=== PATIENT | female | born 1990 | race Caucasian/White ===

== ENCOUNTER 2023-03-19 14:30 | Emergency (ER) | payer OTHER, SELFPAY ==
[2023-03-19 14:41] VITALS: BP 164/121; PULSE 85; RESP 16; TEMP 36.7; O2SAT 100; BMI 28.4
--- NOTE | 2023-03-19 14:44 | ED_ITS ---
HPI - Nausea/Vomiting/Diarrhea General Chief complaint: Nausea/Vomiting/Diarrhea Stated complaint: NAUSEA, POSS. FOODBORNE ILLNESS Time Seen by Provider: 03/19/23 14:34 History of Present Illness HPI Narrative: developed nausea and vomiting with some body aches last night. She works at [employer] with her sister, who also developed the same symptoms.? No fever or chills.? She has not vomited since 11am and she has been able to keep down water since then.? No abdominal pain, flank pain or urinary symptoms.? No other known ill contacts and no one has called or come back to the restaurant complaining of foodborne illness symptoms. Related Data Previous Rx's Medication Instructions Recorded ondansetron 4 mg disintegrating 4 mg PO Q6H PRN nausea and 03/19/23 tablet vomiting #20 tabs Allergies Allergy/AdvReac Type Severity Reaction Status Date / Time Penicillins Allergy Unknown Verified 03/19/23 14:41 PFSH PFS Social History Smoking status: Current every day smoker Exam Narrative Exam Narrative: Nurses notes and vital signs reviewed and patient is not hypoxic. afebrile General: Well-appearing and in no apparent distress. Skin: Warm, dry, no pallor noted. No rash. Head: Normocephalic, atraumatic. Neck: Supple, non-tender. no cervical lymphadenopathy or meningismus Eye: Pupils are equal, round and EOMI. No scleral icterus. Ears, Nose, Mouth, and Throat: Oral mucosa is moist Cardiovascular: Regular Rate and Rhythm without murmur, gallop or rub. Respiratory: No accessory muscle use or respiratory distress. Lungs are clear to auscultation, no wheezing, rales or rhonchi Back: No CVA tenderness Musculoskeletal: normal ROM, no calf or popliteal tenderness, no lower extremity edema/swelling GI: Abdomen is soft, non-distended. Normal bowel sounds. No tenderness to palpation. No rebound, guarding, or rigidity noted. Neurological: A&O x4. No cranial nerve dysfunction observed. No truncal ataxia. Moves all extremities. Sensation intact. Psychiatric: Cooperative and interactive. Normal mood and affect. Constitutional Vital Signs - 24 hr 03/19/23 14:41 Temperature 98.0 F Pulse Rate [Monitor] 85 Respiratory Rate 16 Blood Pressure [Left Arm] 164/121 H Pulse Oximetry 100 Oxygen Delivery Method Room Air Course Vital Signs Vital signs: Vital Signs Temperature 98.0 F 03/19/23 14:41 Pulse Rate 85 03/19/23 14:41 Respiratory Rate 16 03/19/23 14:41 Blood Pressure 164/121 H 03/19/23 14:41 Pulse Oximetry 100 03/19/23 14:41 Oxygen Delivery Method Room Air 03/19/23 14:41 Temperature 98.0 F 03/19/23 14:41 Pulse Rate 85 03/19/23 14:41 Respiratory Rate 16 03/19/23 14:41 Blood Pressure 164/121 H 03/19/23 14:41 Pulse Oximetry 100 03/19/23 14:41 Oxygen Delivery Method Room Air 03/19/23 14:41 MDM - Nausea/Vomiting/Diarrhea MDM Narrative Medical decision making narrative: the patient was swabbed for Covid and given ODT Zofran. covid negative. Discharged home with prescription for zofran Lab Data Labs: Lab Results 03/19/23 Range/Units 15:00 SARS-CoV-2 (PCR) Negative (NEGATIVE) Discharge Plan Discharge Chief Complaint: Nausea/Vomiting/Diarrhea Clinical Impression: Nausea & vomiting Patient Disposition: Home, Self-Care Time of Disposition Decision: 15:36 Prescriptions / Home Meds: New ondansetron 4 mg tablet,disintegrating 4 mg PO Q6H PRN (Reason: nausea and vomiting) Qty: 20 0RF Instructions: Acute Nausea and Vomiting (ED) Stand Alone Forms: Portal Instructions Referrals: Aurelio Chino MD [Primary Care Provider] - 1 week
--- NOTE | 2023-03-19 15:03 | PC.NURSE ---
covid swab obtained and taken to the lab
[2023-03-19] MEDS: ONDANSETRON 4 MG RAPDIS TABLET SL (15:08)
[2023-03-19 15:28] LABS: SARS-CoV-2 Ag NEGATIVE (NEGATIVE)
--- NOTE | 2023-03-19 15:46 | PC.NURSE ---
BP was still elevated. Pt states it always is and that since she was nauseas she didn't take BP meds today. Pt instructed to take them as prescribed when she gets home states she will.
[2023-03-20 11:00] LABS: SARS-CoV-2 NAA NOT DETECTED (NOT DETECTE)
== END 2023-03-19 15:43 | disposition home or self-care (01) ==
PROVIDERS: Emergency Provider Emergency Medicine; PCP Family Medicine
DX: R11.2 Nausea with vomiting, unspecified (principal); F17.210 Nicotine dependence, cigarettes, uncomplicated; Z20.822 Contact with and (suspected) exposure to COVID-19
CPT/HCPCS: 87635; 87811; 99283

== ENCOUNTER 2023-05-06 11:30 | Emergency (ER) | payer OTHER, SELFPAY ==
[2023-05-06 11:33] VITALS: BP 142/90; PULSE 100; RESP 16; TEMP 36.7; O2SAT 98; BMI 30.9
--- NOTE | 2023-05-06 11:46 | ED.ABDPAIN1 ---
HPI - Abdominal Pain General Chief Complaint: Abdominal Pain Stated Complaint: PELVIC PAIN Time Seen by Provider: 05/06/23 11:45 Source: patient Mode of arrival: walk-in Limitations: no limitations Related Data Home Medications Medication Instructions Recorded Confirmed clonidine HCl 0.2 mg tablet 0.2 mg PO Q8H 05/06/23 05/06/23 naltrexone microspheres 380 mg 380 mg IM .monthly 05/06/23 05/06/23 intramuscular suspension,extended release (Vivitrol) quetiapine 100 mg tablet (Seroquel) 100 mg PO DAILY 05/06/23 05/06/23 trazodone 300 mg tablet 300 mg PO DAILY 05/06/23 05/06/23 Previous Rx's Medication Instructions Recorded ondansetron 4 mg disintegrating 4 mg PO Q6H PRN nausea and 03/19/23 tablet vomiting #20 tabs Allergies Allergy/AdvReac Type Severity Reaction Status Date / Time Penicillins Allergy Unknown Verified 05/06/23 11:33 PFSH PFSH Social History Smoking status: Current every day smoker Exam Constitutional Vital Signs, click to edit/add: Last Vital Signs Temp 98.1 F 05/06/23 11:33 Pulse 100 H 05/06/23 11:33 Resp 16 05/06/23 11:33 BP 142/90 H 05/06/23 11:33 Pulse Ox 98 05/06/23 11:33 O2 Del Method Room Air 05/06/23 11:33 Course Vital Signs Vital signs: Vital Signs Temperature 98.1 F 05/06/23 11:33 Pulse Rate 100 H 05/06/23 11:33 Respiratory Rate 16 05/06/23 11:33 Blood Pressure 142/90 H 05/06/23 11:33 Pulse Oximetry 98 05/06/23 11:33 Oxygen Delivery Method Room Air 05/06/23 11:33 Temperature 98.1 F 05/06/23 11:33 Pulse Rate 100 H 05/06/23 11:33 Respiratory Rate 16 05/06/23 11:33 Blood Pressure 142/90 H 05/06/23 11:33 Pulse Oximetry 98 05/06/23 11:33 Oxygen Delivery Method Room Air 05/06/23 11:33 Discharge Plan Discharge Chief Complaint: Abdominal Pain Prescriptions / Home Meds: No Action ondansetron 4 mg tablet,disintegrating 4 mg PO Q6H PRN (Reason: nausea and vomiting) Qty: 20 0RF clonidine HCl 0.2 mg tablet 0.2 mg PO Q8H trazodone 300 mg tablet 300 mg PO DAILY quetiapine [Seroquel] 100 mg tablet 100 mg PO DAILY Vivitrol 380 mg suspension,extended rel recon 380 mg IM .monthly Referrals: Theron Whitney DO [Primary Care Provider] - 1 week
--- NOTE | 2023-05-06 12:00 | US_ITS ---
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 FINDINGS: Uterus: Surgically absent. Vaginal cuff region is symmetric. Pelvic mass or free fluid is not evident. Right ovary: 4.0 x 2.8 x 2.7 cm, volume 16 mL. Increased number of subcentimeter peripherally distributed follicles identified. Left adnexa: No pathology identified left ovary surgically absent. DUPLEX PELVIC VASCULATURE: There is intact flow within the right ovarian tissue by color-flow assessment. Arterial and venous spectral tracing is identified from within. Right resistive index 0.62. US/US pelvis transvaginal IMPRESSION: 1. Surgical absence of the uterus and left ovary 2. Enlarged right ovarian volume, 16 mL with increased number peripherally distributed subcentimeter follicles. Polycystic ovarian syndrome considered in the appropriate clinical setting. 3. No sonographic sign of right adnexal torsion Electronically authenticated by: SEN BILL Date: 05/06/2023 12:41
[2023-05-06 12:05] LABS: Bilirubin Urine NEGATIVE (NEGATIVE); Blood Urine NEGATIVE (NEGATIVE); Clarity Urine CLEAR (CLEAR); Color Urine YELLOW (YELLOW); Glucose Urine UA NEGATIVE (NEGATIVE); Ketones Urine TRACE mg/dL (NEGATIVE); Leukocyte Esterase Urine NEGATIVE (NEGATIVE); Nitrite Urine NEGATIVE (NEGATIVE); Protein Urine NEGATIVE (NEG/TRACE); Specific Gravity Urine >=1.030 (1.005-1.025); Urobilinogen Urine 0.2 EU/dL (0.2-1.0)
[2023-05-06 12:08] LABS: Urine Microscopic Indicated NO
[2023-05-06 13:13] LABS: Occult Blood Negative
[2023-05-06] MEDS: IBUPROFEN 400 MG TABLET 800 MG PO (13:13)
--- NOTE | 2023-05-06 16:32 | ED.ABDPAIN1 ---
HPI - Abdominal Pain General Chief Complaint: Abdominal Pain Stated Complaint: PELVIC PAIN Time Seen by Provider: 05/06/23 11:45 Source: patient Mode of arrival: walk-in Limitations: no limitations History of Present Illness HPI narrative: Patient presents to emergency department complaining of left pelvic pain. Patient states she was at work and had to leave work because she developed left suprapubic pain. She said she felt like she has to have a bowel movement and she went to the bathroom but nothing happened so she then proceeded to urinate and when she wiped there was a pink tinged on the toilet paper. Patient was concerned because she had a hysterectomy. She denies any direct trauma. She denies any flank pain, or dysuria. She denies any trauma. She states that she had a bowel movement this morning. She denies any fever, chills, nausea, vomiting. She denies any vaginal discharge. She denies any chest pain, shortness of breath. Denies any lower extremity edema, cramping.pt has not taken anything for the pain. States the pain has improved. She also states has a history of ovarian cysts and this felt like when she had a cyst. Related Data Home Medications Medication Instructions Recorded Confirmed clonidine HCl 0.2 mg tablet 0.2 mg PO Q8H 05/06/23 05/06/23 naltrexone microspheres 380 mg 380 mg IM .monthly 05/06/23 05/06/23 intramuscular suspension,extended release (Vivitrol) quetiapine 100 mg tablet (Seroquel) 100 mg PO DAILY 05/06/23 05/06/23 trazodone 300 mg tablet 300 mg PO DAILY 05/06/23 05/06/23 Previous Rx's Medication Instructions Recorded ondansetron 4 mg disintegrating 4 mg PO Q6H PRN nausea and 03/19/23 tablet vomiting #20 tabs Allergies Allergy/AdvReac Type Severity Reaction Status Date / Time Penicillins Allergy Unknown Verified 05/06/23 11:33 Review of Systems ROS Status of ROS 10 or more systems reviewed and unremarkable except as noted in history and below [facility] Surgical History (Updated 05/06/23 @ 12:34 by Aurora Bishop RN) Social History Smoking status: Current every day smoker Exam Narrative Exam Narrative: Nurses notes and vital signs reviewed and patient is not hypoxic. General: Nontoxic, Well-appearing and in no apparent distress. Skin: Warm, dry, no pallor noted. No Rash Head: Normocephalic, atraumatic. Neck: Supple, non-tender. Eye: Pupils are equal, round and EOMI. No scleral icterus. Ears, Nose, Mouth, and Throat: TM clear, no posterior oropharynx erythema or nasal mucosal hypertrophy, uvula is mid-line Oral mucosa is moist Cardiovascular: Regular Rate and Rhythm without murmur, gallop or rub. Respiratory: No accessory muscle use or respiratory distress. Lungs are clear to auscultation, no wheezing, rales or rhonchi Chest Wall: no tenderness Back: No midline thoracic or lumbar vertebral tenderness. No CVA tenderness Musculoskeletal: normal ROM, no calf or popliteal tenderness, no lower extremity edema/swelling GI: Abdomen is soft, non-distended. Normal bowel sounds. No masses appreciated. Mild left suprapubic tenderness to palpation. No rebound, guarding, or rigidity noted. Genitourinary: Normal., No vaginal bleeding noted. Rectal exam shows soft yellow stool is Hemoccult-negative. There is a rectal nonthrombosed hemorrhoid. Neurological: A&O x4. No cranial nerve dysfunction observed. No truncal ataxia. Moves all extremities. Sensation intact. Psychiatric: Cooperative and interactive. Normal mood and affect. Constitutional Vital Signs, click to edit/add: Last Vital Signs Temp 98.1 F 05/06/23 11:33 Pulse 100 H 05/06/23 11:33 Resp 16 05/06/23 11:33 BP 142/90 H 05/06/23 11:33 Pulse Ox 98 05/06/23 11:33 O2 Del Method Room Air 05/06/23 11:33 Course Vital Signs Vital signs: Vital Signs Temperature 98.1 F 05/06/23 11:33 Pulse Rate 100 H 05/06/23 11:33 Respiratory Rate 16 05/06/23 11:33 Blood Pressure 142/90 H 05/06/23 11:33 Pulse Oximetry 98 05/06/23 11:33 Oxygen Delivery Method Room Air 05/06/23 11:33 Temperature 98.1 F 05/06/23 11:33 Pulse Rate 100 H 05/06/23 11:33 Respiratory Rate 16 05/06/23 11:33 Blood Pressure 142/90 H 08/16/23 11:33 Pulse Oximetry 98 08/16/23 11:33 Oxygen Delivery Method Room Air 05/06/23 11:33 MDM - Abdominal Pain MDM Narrative Medical decision making narrative: Urinalysis did not show any Hematuria. Vaginal exam does not show any vaginal bleeding. Rectal exam does not show any blood. The patient was instructed to continue to monitor. Pain has improved. Pelvic ultrasound shows PCOS. no signs of torsion. Abdomen is benign and nonsurgical. Patient is advised to continue taking Motrin at home as stated for pain. At this time the patient is without objective evidence of an acute process requiring hospitalization or inpatient management. The patient has remained hemodynamically stable. No additional indication for emergent studies at this time. I answered all questions. Discussed discharge instructions including standard anticipatory guidance and what should prompt a return to the emergency department, including if they get worse are not getting better or develops any new or concerning symptoms. I've given them specific time frame in which to follow-up, and who to follow-up with. The patient demonstrates understanding. Patient is nontoxic and stable for discharge with outpatient follow-up. This note was created with the assistance of a speech recognition program. Although the intention is to generate documents that actually reflects the content of the visit, no guarantees can be provided that every mistake has been identified and corrected by editing. Lab Data Labs: Lab Results 05/06/23 05/06/23 Range/Units 11:43 12:35 Urine Color Yellow (YELLOW) Urine Clarity Clear (CLEAR) Urine pH 5.0 (5.0-9.0) Ur Specific [place] >=1.030 A (1.005-1.025) Urine Protein Negative (NEG/TRACE) mg/dL Urine Glucose (UA) Negative (NEGATIVE) mg/dL Urine Ketones Trace A (NEGATIVE) mg/dL Urine Occult Blood Negative (NEGATIVE) Urine Nitrite Negative (NEGATIVE) Urine Bilirubin Negative (NEGATIVE) Urine Urobilinogen 0.2 (0.2-1.0) EU/dL Ur Leukocyte Esterase Negative (NEGATIVE) Stool Occult Blood Negative Discharge Plan Discharge Chief Complaint: Abdominal Pain Clinical Impression: Pelvic pain Patient Disposition: Home, Self-Care Time of Disposition Decision: 13:20 Condition: Good Mode of Transportation: Private Vehicle Prescriptions / Home Meds: No Action ondansetron 4 mg tablet,disintegrating 4 mg PO Q6H PRN (Reason: nausea and vomiting) Qty: 20 0RF clonidine HCl 0.2 mg tablet 0.2 mg PO Q8H trazodone 300 mg tablet 300 mg PO DAILY quetiapine [Seroquel] 100 mg tablet 100 mg PO DAILY Vivitrol 380 mg suspension,extended rel recon 380 mg IM .monthly Instructions: Pelvic Pain (ED) Stand Alone Forms: Portal Instructions Referrals: Theron Whitney DO [Primary Care Provider] - 1 week Discharge Date/Time: 05/06/23 13:25
== END 2023-05-06 13:25 | disposition home or self-care (01) ==
PROVIDERS: Emergency Provider Emergency Medicine; PCP Obstetrics & Gynecology
DX: R10.2 Pelvic and perineal pain (principal); E28.2 Polycystic ovarian syndrome; Z90.710 Acquired absence of both cervix and uterus; Z79.899 Other long term (current) drug therapy; F17.210 Nicotine dependence, cigarettes, uncomplicated
CPT/HCPCS: 76830; 81003; 99284; G0328

== ENCOUNTER 2023-06-19 09:34 | Emergency (ER) | payer OTHER, SELFPAY ==
[2023-06-19 09:38] VITALS: BP 179/123; PULSE 82; RESP 16; TEMP 36.7; O2SAT 98; BMI 31.0
--- NOTE | 2023-06-19 09:49 | ED_ITS ---
HPI - General Adult General Chief complaint: Nausea/Vomiting/Diarrhea Stated complaint: NAUSEA Time Seen by Provider: 06/19/23 09:39 Source: patient Mode of arrival: walk-in Limitations: no limitations History of Present Illness HPI narrative: Patient developed nausea and vomiting about 12 hours ago and has been unable to keep anything down since then. No associated diarrhea or abdominal pain. No flank pain. She had prior hysterectomy. She denied urinary symptoms and denied any fever or chills. Related Data Home Medications Medication Instructions Recorded Confirmed clonidine HCl 0.2 mg tablet 0.2 mg PO Q8H 05/06/23 05/06/23 naltrexone microspheres 380 mg 380 mg IM .monthly 05/06/23 05/06/23 intramuscular suspension,extended release (Vivitrol) quetiapine 100 mg tablet (Seroquel) 100 mg PO DAILY 05/06/23 05/06/23 trazodone 300 mg tablet 300 mg PO DAILY 05/06/23 05/06/23 Previous Rx's Medication Instructions Recorded ondansetron 4 mg disintegrating 4 mg PO Q6H PRN nausea and 03/19/23 tablet vomiting #20 tabs Allergies Allergy/AdvReac Type Severity Reaction Status Date / Time Penicillins Allergy Unknown Verified 05/06/23 11:33 [facility] Surgical History (Updated 05/06/23 @ 12:34 by Aurora Bishop RN) Social History Smoking status: Current every day smoker Exam Narrative Exam Narrative: Nurses notes and vital signs reviewed and patient is not hypoxic. afebrile General: Well-appearing and in no apparent distress. Skin: Warm, dry, no pallor noted. Neck: Supple, no meningismus Eye: Pupils are equal, round and EOMI. No scleral icterus. Ears, Nose, Mouth, and Throat: Oral mucosa is dry Cardiovascular: Regular Rate and Rhythm without murmur, gallop or rub. Respiratory: No accessory muscle use or respiratory distress. Lungs are clear to auscultation, no wheezing, rales or rhonchi Back: No CVA tenderness Musculoskeletal: normal ROM GI: Abdomen is soft, non-distended. Normal bowel sounds. No masses appreciated. No tenderness to palpation. No rebound, guarding, or rigidity noted. Neurological: A&O x4. No cranial nerve dysfunction observed. No truncal ataxia. Moves all extremities. Sensation intact. Psychiatric: Cooperative and interactive. Normal mood and affect. Constitutional Vital Signs, click to edit/add: Last Vital Signs Temp 98.1 F 06/19/23 09:38 Pulse 82 06/19/23 10:15 Resp 18 06/19/23 10:15 BP 152/98 H 06/19/23 10:15 Pulse Ox 98 06/19/23 10:15 Course Vital Signs Vital signs: Vital Signs Temperature 98.1 F 06/19/23 09:38 Pulse Rate 82 06/19/23 09:38 Respiratory Rate 16 06/19/23 09:38 Blood Pressure 179/123 H 06/19/23 09:38 Pulse Oximetry 98 06/19/23 09:38 Temperature 98.1 F 06/19/23 09:38 Pulse Rate 82 06/19/23 10:15 Respiratory Rate 18 06/19/23 10:15 Blood Pressure 152/98 H 06/19/23 10:15 Pulse Oximetry 98 06/19/23 10:15 Medical Decision Making MDM Narrative Medical decision making narrative: peripheral IV established and blood and urine were obtained and sent for testing. the patient has mild elevation of her LFTs and some bilirubin in her urine - she had previous cholecystectomy and is not having any upper abdominal tenderness on palpation - but otherwise the testing was unremarkable. The patient received a liter of normal saline IV fluid and IV Zofran. She felt better after Emergency Department treatment. She has additional Zofran at home from prior prescription in February and plans to use that. We discussed clear liquid diet until her nausea and vomiting subside and advancement as tolerated. Emergency Department return if she worsens. Lab Data Lab results reviewed: Yes I reviewed the patient's lab results Labs: Lab Results 06/19/23 06/19/23 Range/Units 09:43 10:02 WBC 8.7 (4.0-11.0) 10^3/uL RBC 5.36 (4.20-5.40) 10^6/uL Hgb 16.2 H (12.0-16.0) g/dL Hct 48.4 H (36.0-48.0) % MCV 90.3 (81.0-99.0) fL MCH 30.2 (26.7-34.0) pg MCHC 33.5 (29.9-35.2) g/dL RDW 12.4 (11.0-15.0) % Plt Count 259 (150-450) 10^3/uL MPV 9.3 L (9.5-13.5) fL Neut % (Auto) 72.3 (43.0-75.0) % Lymph % (Auto) 18.6 L (20.5-60.0) % [place] % (Auto) 7.5 (1.7-12.0) % Eos % (Auto) 0.5 L (0.9-7.0) % Baso % (Auto) 0.8 (0.2-2.0) % Neut # (Auto) 6.3 (1.4-6.5) 10^3/uL Lymph # (Auto) 1.6 (1.2-3.8) 10^3/uL [place] # (Auto) 0.7 (0.3-0.8) 10^3/uL Eos # (Auto) 0.0 (0.0-0.7) 10^3/uL Baso # (Auto) 0.1 (0.0-0.1) 10^3/uL Abs Immat Gran (auto) 0.03 (0.00-0.03) 10^3/uL Imm/Tot Granulo (auto) 0.3 (0.0-0.5) % Sodium 139 (136-145) mmol/L Potassium 3.9 (3.5-5.1) mmol/L Chloride 99 (98-107) mmol/L Carbon Dioxide 28.9 (21.0-32.0) mmol/L Anion Gap 15.0 BUN 19.0 H (7.0-18.0) mg/dL Creatinine 0.98 (0.55-1.02) mg/dL Est GFR ( Amer) >60 (>=60) Est GFR (Non-Af Amer) >60 (>=60) BUN/Creatinine Ratio 19.4 Glucose 119 H (74-106) mg/dL Calcium 9.6 (8.5-10.1) mg/dL Total Bilirubin 0.9 (0.2-1.0) mg/dL AST 43 H (15-37) U/L ALT 112 H (14-59) U/L Alkaline Phosphatase 71 (46-116) U/L Total Protein 8.6 H (6.4-8.2) g/dL Albumin 4.2 (3.4-5.0) g/dL Globulin 4.4 g/dL Albumin/Globulin Ratio 1.0 Lipase 150.0 (73.0-393.0) U/L Urine Color Dk. yellow (YELLOW) Urine Clarity Clear (CLEAR) Urine pH 5.5 (5.0-9.0) Ur Specific [place] >=1.030 A (1.005-1.025) Urine Protein 30 A (NEG/TRACE) mg/dL Urine Glucose (UA) Negative (NEGATIVE) mg/dL Urine Ketones 15 A (NEGATIVE) mg/dL Urine Occult Blood Negative (NEGATIVE) Urine Nitrite Negative (NEGATIVE) Urine Bilirubin Moderate A (NEGATIVE) Urine Urobilinogen 0.2 (0.2-1.0) EU/dL Ur Leukocyte Esterase Negative (NEGATIVE) Urine RBC 0-2 (0-2) #/HPF Urine WBC None seen (NONE SEEN) #/HPF Ur Squamous Epith Cells Few A (NONE/RARE) #/LPF Urine Crystals None seen (None Seen) #/HPF Urine Bacteria Small A (NONE SEEN) #/HPF Urine Casts None seen (NONE SEEN) #/LPF Urine Mucus Moderate A (NONE SEEN) Ur Culture Indicated? Yes Discharge Plan Discharge Chief Complaint: Nausea/Vomiting/Diarrhea Clinical Impression: Nausea & vomiting Patient Disposition: Home, Self-Care Time of Disposition Decision: 11:24 Prescriptions / Home Meds: No Action ondansetron 4 mg tablet,disintegrating 4 mg PO Q6H PRN (Reason: nausea and vomiting) Qty: 20 0RF clonidine HCl 0.2 mg tablet 0.2 mg PO Q8H trazodone 300 mg tablet 300 mg PO DAILY quetiapine [Seroquel] 100 mg tablet 100 mg PO DAILY Vivitrol 380 mg suspension,extended rel recon 380 mg IM .monthly Instructions: Acute Nausea and Vomiting (ED) Stand Alone Forms: Portal Instructions Referrals: Aurelio Chino MD [Primary Care Provider] - 1 week
[2023-06-19] MEDS: 0.9 % SODIUM CHLORIDE 1,000 ML 999 ML IV (09:54)
[2023-06-19] MEDS: ONDANSETRON PF 4 MG/2 ML VIAL IV (09:54)
[2023-06-19 10:15] VITALS: BP 152/98; PULSE 82; RESP 18; O2SAT 98
[2023-06-19 10:17] LABS: Bilirubin Urine MODERATE (NEGATIVE); Blood Urine NEGATIVE (NEGATIVE); Clarity Urine CLEAR (CLEAR); Color Urine DK. YELLOW (YELLOW); Glucose Urine UA NEGATIVE (NEGATIVE); Ketones Urine 15 mg/dL (NEGATIVE); Leukocyte Esterase Urine NEGATIVE (NEGATIVE); Nitrite Urine NEGATIVE (NEGATIVE); Protein Urine 30 mg/dL (NEG/TRACE); Specific Gravity Urine >=1.030 (1.005-1.025); Urobilinogen Urine 0.2 EU/dL (0.2-1.0); pH Urine 5.5 (5.0-9.0)
[2023-06-19 10:17] LABS: Basophils Absolute Auto 0.1 10^3/uL (0.0-0.1); Basophils Percent Auto 0.8 % (0.2-2.0); Eosinophils Percent Auto 0.5 % (0.9-7.0); Hematocrit 48.4 % (36.0-48.0); Hemoglobin 16.2 g/dL (12.0-16.0); Immature Granulocytes Abs Auto 0.03 10^3/uL (0.00-0.03); Immature Granulocytes Pct Auto 0.3 % (0.0-0.5); Lymphocytes Absolute Auto 1.6 10^3/uL (1.2-3.8); Lymphocytes Percent Auto 18.6 % (20.5-60.0); Mean Corpuscular HGB Conc 33.5 g/dL (29.9-35.2); Mean Corpuscular Hemoglobin 30.2 pg (26.7-34.0); Mean Corpuscular Volume 90.3 fL (81.0-99.0); Mean Platelet Volume 9.3 fL (9.5-13.5); Monocytes Absolute Auto 0.7 10^3/uL (0.3-0.8); Monocytes Percent Auto 7.5 % (1.7-12.0); Neutrophils Absolute Auto 6.3 10^3/uL (1.4-6.5); Neutrophils Percent Auto 72.3 % (43.0-75.0); Platelet Count 259 10^3/uL (150-450); Red Blood Count 5.36 10^6/uL (4.20-5.40); Red Cell Distribution Width 12.4 % (11.0-15.0); White Blood Count 8.7 10^3/uL (4.0-11.0)
[2023-06-19 10:22] LABS: Urine Microscopic Indicated YES
[2023-06-19 10:30] LABS: Bacteria Urine SMALL #/HPF (NONE SEEN); Cast Seen? NONE SEEN #/LPF (NONE SEEN); Crystals Seen? None Seen #/HPF (None Seen); Mucus Urine MODERATE (NONE SEEN); RBC Urine 0-2 #/HPF (0-2); Squamous Epithelial Cell Urine FEW #/LPF (NONE/RARE); Urine Culture Indicated YES; WBC Urine NONE SEEN #/HPF (NONE SEEN)
[2023-06-19 10:39] LABS: Alanine Aminotransferase 112 U/L (14-59); Albumin Level 4.2 g/dL (3.4-5.0); Alkaline Phosphatase 71 U/L (46-116); Aspartate Amino Transferase 43 U/L (15-37); BUN Creatinine Ratio 19.4; Bilirubin Total 0.9 mg/dL (0.2-1.0); Calcium 9.6 mg/dL (8.5-10.1); Carbon Dioxide 28.9 mmol/L (21.0-32.0); Chloride 99 mmol/L (98-107); Estimated GFR (African America >60 (>=60); Estimated GFR (Non-African Ame >60 (>=60); Globulin 4.4 g/dL; Glucose 119 mg/dL (74-106); Potassium 3.9 mmol/L (3.5-5.1); Sodium 139 mmol/L (136-145); Total Protein 8.6 g/dL (6.4-8.2)
== END 2023-06-19 11:31 | disposition home or self-care (01) ==
PROVIDERS: Emergency Provider Emergency Medicine; PCP Family Medicine
DX: R11.2 Nausea with vomiting, unspecified (principal); Z90.710 Acquired absence of both cervix and uterus; Z79.899 Other long term (current) drug therapy; F17.210 Nicotine dependence, cigarettes, uncomplicated; R79.89 Other specified abnormal findings of blood chemistry
CPT/HCPCS: 36415; 80053; 81001; 83690; 85025; 87086; 96361; 96374; 99284

== ENCOUNTER 2023-06-20 10:45 | Emergency (ER) | payer OTHER, SELFPAY ==
[2023-06-20 10:54] VITALS: BP 148/107; PULSE 88; RESP 14; TEMP 37; O2SAT 98; BMI 31.0
--- NOTE | 2023-06-20 11:04 | ED.GENADUL1 ---
HPI - General Adult General Chief complaint: Nausea/Vomiting/Diarrhea Stated complaint: STILL UNABLE TO KEEP FOODS/LIQUIDS DOWN Time Seen by Provider: 06/20/23 10:50 Source: patient Mode of arrival: walk-in Limitations: no limitations History of Present Illness HPI narrative: I saw this patient yesterday. She did well last night and then woke at 4am and vomited. She did not take any additional zofran. She was able to sip water and gatorade this morning. She came back because she is still nauseous. No new symptoms. She asked to be swabbed for Covid. She does not have fever, chills, headache or URI symptoms. Related Data Home Medications Medication Instructions Recorded Confirmed clonidine HCl 0.2 mg tablet 0.2 mg PO Q8H 05/06/23 06/20/23 naltrexone microspheres 380 mg 380 mg IM .monthly 05/06/23 06/20/23 intramuscular suspension,extended release (Vivitrol) quetiapine 100 mg tablet (Seroquel) 100 mg PO DAILY 05/06/23 06/20/23 trazodone 300 mg tablet 300 mg PO DAILY 05/06/23 06/20/23 Previous Rx's Medication Instructions Recorded ondansetron 4 mg disintegrating 4 mg PO Q6H PRN nausea and 03/19/23 tablet vomiting #20 tabs Allergies Allergy/AdvReac Type Severity Reaction Status Date / Time Penicillins Allergy Unknown Verified 06/20/23 10:53 [facility] Surgical History (Updated 05/06/23 @ 12:34 by Aurora Bishop RN) History of hysterectomy ?Z90.710 - Acquired absence of both cervix and uterus (ICD-10) Social History Smoking status: Current every day smoker Exam Narrative Exam Narrative: Nurses notes and vital signs reviewed and patient is not hypoxic. afebrile General: Well-appearing and in no apparent distress. Skin: Warm, dry, no pallor noted. No rash. Head: Normocephalic, atraumatic. Neck: Supple, no images. Eye: Pupils are equal, round and EOMI. No scleral icterus. Ears, Nose, Mouth, and Throat: Oral mucosa is moist Cardiovascular: Regular Rate and Rhythm without murmur, gallop or rub. Respiratory: No accessory muscle use or respiratory distress. Lungs are clear to auscultation, no wheezing, rales or rhonchi Musculoskeletal: normal ROM GI: Abdomen is soft, non-distended. Normal bowel sounds. No tenderness to palpation. No rebound, guarding, or rigidity noted. Neurological: A&O x4. No cranial nerve dysfunction observed. No truncal ataxia. Moves all extremities. Sensation intact. Psychiatric: Cooperative and interactive. Normal mood and affect. Constitutional Vital Signs, click to edit/add: Last Vital Signs Temp 98.6 F 06/20/23 10:54 Pulse 88 06/20/23 10:54 Resp 14 06/20/23 10:54 BP 148/107 H 06/20/23 10:54 Pulse Ox 98 06/20/23 10:54 O2 Del Method Room Air 06/20/23 10:54 Course Vital Signs Vital signs: Vital Signs Temperature 98.6 F 06/20/23 10:54 Pulse Rate 88 06/20/23 10:54 Respiratory Rate 14 06/20/23 10:54 Blood Pressure 148/107 H 06/20/23 10:54 Pulse Oximetry 98 06/20/23 10:54 Oxygen Delivery Method Room Air 06/20/23 10:54 Temperature 98.6 F 06/20/23 10:54 Pulse Rate 88 06/20/23 10:54 Respiratory Rate 14 06/20/23 10:54 Blood Pressure 148/107 H 06/20/23 10:54 Pulse Oximetry 98 06/20/23 10:54 Oxygen Delivery Method Room Air 06/20/23 10:54 Medical Decision Making MDM Narrative Medical decision making narrative: patient was artery worked up and evaluated yesterday. She did not take her Zofran this morning. I ordered her to receive IM Phenergan and she was discharged home. She requested a Covid swabs that was obtained. We will call her back as positive. She can see Dr. Chino for follow-up Discharge Plan Discharge Chief Complaint: Nausea/Vomiting/Diarrhea Clinical Impression: Nausea & vomiting Patient Disposition: Home, Self-Care Time of Disposition Decision: 11:04 Prescriptions / Home Meds: No Action ondansetron 4 mg tablet,disintegrating 4 mg PO Q6H PRN (Reason: nausea and vomiting) Qty: 20 0RF clonidine HCl 0.2 mg tablet 0.2 mg PO Q8H trazodone 300 mg tablet 300 mg PO DAILY quetiapine [Seroquel] 100 mg tablet 100 mg PO DAILY Vivitrol 380 mg suspension,extended rel recon 380 mg IM .monthly Instructions: Acute Nausea and Vomiting (ED) Stand Alone Forms: Portal Instructions Referrals: Aurelio Chino MD [Primary Care Provider] - 1 week
[2023-06-20] MEDS: PROMETHAZINE HCL 25 MG/ML VIAL IM (11:11)
[2023-06-20 11:49] LABS: SARS-CoV-2 Ag NEGATIVE (NEGATIVE)
[2023-06-21 15:30] LABS: SARS-CoV-2 NAA NOT DETECTED (NOT DETECTE)
== END 2023-06-20 11:21 | disposition home or self-care (01) ==
PROVIDERS: Emergency Provider Emergency Medicine; PCP Family Medicine
DX: R11.2 Nausea with vomiting, unspecified (principal); R19.7 Diarrhea, unspecified; F17.210 Nicotine dependence, cigarettes, uncomplicated; Z90.710 Acquired absence of both cervix and uterus; Z20.822 Contact with and (suspected) exposure to COVID-19
CPT/HCPCS: 87635; 87811; 96372; 99284; U0003

== ENCOUNTER 2023-06-25 07:58 | Emergency (ER) | payer OTHER, SELFPAY ==
[2023-06-25 08:03] VITALS: BP 191/123; PULSE 77; RESP 20; TEMP 36.9; O2SAT 98; BMI 31.0
--- NOTE | 2023-06-25 08:11 | ED_ITS ---
HPI - Nausea/Vomiting/Diarrhea General Chief complaint: Nausea/Vomiting/Diarrhea Stated complaint: VOMITING Time Seen by Provider: 06/25/23 08:02 Source: patient Mode of arrival: walk-in Limitations: no limitations History of Present Illness HPI Narrative: 33-year-old female presents for six days of nausea and vomiting. She was here earlier in the past week. She hasn't had a fever or hematemesis. No cough or shortness of breath. She doesn't complain of diarrhea except a minimal amount that she feels is due to not eating. Related Data Home Medications Medication Instructions Recorded Confirmed clonidine HCl 0.2 mg tablet 0.2 mg PO Q8H 05/06/23 06/20/23 naltrexone microspheres 380 mg 380 mg IM .monthly 05/06/23 06/20/23 intramuscular suspension,extended release (Vivitrol) quetiapine 100 mg tablet (Seroquel) 100 mg PO DAILY 05/06/23 06/20/23 trazodone 300 mg tablet 300 mg PO DAILY 05/06/23 06/20/23 Previous Rx's Medication Instructions Recorded ondansetron 4 mg disintegrating 4 mg PO Q6H PRN nausea and 03/19/23 tablet vomiting #20 tabs promethazine 25 mg tablet 25 mg PO Q6H PRN nausea and 06/25/23 vomiting #30 tabs Allergies Allergy/AdvReac Type Severity Reaction Status Date / Time Penicillins Allergy Unknown Verified 06/25/23 08:09 Review of Systems ROS Narrative systems [facility] Surgical History (Updated 05/06/23 @ 12:34 by Aurora Bishop RN) History of hysterectomy ?Z90.710 - Acquired absence of both cervix and uterus (ICD-10) Social History Smoking status: Current every day smoker Exam Narrative Exam Narrative: Nurses note and vital signs reviewed and patient is not hypoxic. General: The patient appears well and in no apparent distress. Patient is resting comfortably on cart. Skin: Warm, dry, no pallor noted. There is no rash noted. Head: Normocephalic, atraumatic Eye: Normal conjunctiva, no drainage Ears, Nose, Mouth, and Throat: oral mucosa is moist. Nares patent. Cardiovascular: Regular Rate and Rhythm Respiratory: Patient is in no distress, no accessory muscle use, lungs are clear to auscultation, no wheezing, rales or rhonchi Back: non-tender GI: soft and nontender and nondistended Musculoskeletal: The patient has no evidence of calf tenderness, no pitting edema, symmetrical pulses noted bilaterally Neurological: A&O, normal speech Psychiatric: Cooperative Constitutional Vital Signs, click to edit/add: Last Vital Signs Temp 98.4 F 06/25/23 08:03 Pulse 77 06/25/23 08:03 Resp 20 06/25/23 08:03 BP 160/100 H 06/25/23 11:48 Pulse Ox 98 06/25/23 08:03 O2 Del Method Room Air 06/25/23 08:03 Course Vital Signs Vital signs: Vital Signs Temperature 98.4 F 06/25/23 08:03 Pulse Rate 77 06/25/23 08:03 Respiratory Rate 20 06/25/23 08:03 Blood Pressure 191/123 H 06/25/23 08:03 Pulse Oximetry 98 06/25/23 08:03 Oxygen Delivery Method Room Air 06/25/23 08:03 Temperature 98.4 F 06/25/23 08:03 Pulse Rate 77 06/25/23 08:03 Respiratory Rate 20 06/25/23 08:03 Blood Pressure 160/100 H 06/25/23 11:48 Pulse Oximetry 98 06/25/23 08:03 Oxygen Delivery Method Room Air 06/25/23 08:03 MDM - Nausea/Vomiting/Diarrhea MDM Narrative Medical decision making narrative: We were unable to get an IV in her, she has a remote history of IV drug abuse. She was given IM Phenergan and feels much better now and is tolerating by mouth liquids. We were able to give her her blood pressure medication, morning dose, and her blood pressure is improving. She is able to be discharged home on Phenergan. Treatment diagnosis and follow-up were discussed with the patient. Differential Diagnosis Differential diagnosis: Likely food poisoning, gastroenteritis and dehydration Lab Data Attestation: I reviewed the patient's lab results. Labs: Lab Results 06/25/23 06/25/23 Range/Units 08:15 09:15 WBC 6.6 (4.0-11.0) 10^3/uL RBC 5.06 (4.20-5.40) 10^6/uL Hgb 15.3 (12.0-16.0) g/dL Hct 45.3 (36.0-48.0) % MCV 89.5 (81.0-99.0) fL MCH 30.2 (26.7-34.0) pg MCHC 33.8 (29.9-35.2) g/dL RDW 12.2 (11.0-15.0) % Plt Count 253 (150-450) 10^3/uL MPV 9.9 (9.5-13.5) fL Neut % (Auto) 64.7 (43.0-75.0) % Lymph % (Auto) 23.1 (20.5-60.0) % Canadian % (Auto) 8.9 (1.7-12.0) % Eos % (Auto) 1.7 (0.9-7.0) % Baso % (Auto) 0.8 (0.2-2.0) % Neut # (Auto) 4.3 (1.4-6.5) 10^3/uL Lymph # (Auto) 1.5 (1.2-3.8) 10^3/uL Canadian # (Auto) 0.6 (0.3-0.8) 10^3/uL Eos # (Auto) 0.1 (0.0-0.7) 10^3/uL Baso # (Auto) 0.1 (0.0-0.1) 10^3/uL Abs Immat Gran (auto) 0.05 H (0.00-0.03) 10^3/uL Imm/Tot Granulo (auto) 0.8 H (0.0-0.5) % Sodium 140 (136-145) mmol/L Potassium 3.4 L (3.5-5.1) mmol/L Chloride 104 (98-107) mmol/L Carbon Dioxide 25.4 (21.0-32.0) mmol/L Anion Gap 14.0 BUN 13.0 (7.0-18.0) mg/dL Creatinine 0.68 (0.55-1.02) mg/dL Est GFR ( Amer) >60 (>=60) Est GFR (Non-Af Amer) >60 (>=60) BUN/Creatinine Ratio 19.1 Glucose 115 H (74-106) mg/dL Calcium 9.0 (8.5-10.1) mg/dL Total Bilirubin 0.5 (0.2-1.0) mg/dL Direct Bilirubin 0.1 (0.0-0.2) mg/dL AST 30 (15-37) U/L ALT 69 H (14-59) U/L Alkaline Phosphatase 61 (46-116) U/L Total Protein 7.6 (6.4-8.2) g/dL Albumin 3.7 (3.4-5.0) g/dL Globulin 3.9 g/dL Albumin/Globulin Ratio 0.9 Serum HCG, Qual Cancelled Urine Color Yellow (YELLOW) Urine Clarity Clear (CLEAR) Urine pH 7.0 (5.0-9.0) Ur Specific [place] 1.025 (1.005-1.025) Urine Protein 30 A (NEG/TRACE) mg/dL Urine Glucose (UA) Negative (NEGATIVE) mg/dL Urine Ketones >=80 A (NEGATIVE) mg/dL Urine Occult Blood Negative (NEGATIVE) Urine Nitrite Negative (NEGATIVE) Urine Bilirubin Small A (NEGATIVE) Urine Urobilinogen 1.0 (0.2-1.0) EU/dL Ur Leukocyte Esterase Negative (NEGATIVE) Urine RBC 0-2 (0-2) #/HPF Urine WBC None seen (NONE SEEN) #/HPF Ur Squamous Epith Cells Moderate A (NONE/RARE) #/LPF Urine Crystals None seen (None Seen) #/HPF Urine Bacteria Trace A (NONE SEEN) #/HPF Urine Casts Seen A (NONE SEEN) #/LPF Hyaline Casts Rare Urine Mucus Moderate A (NONE SEEN) Discharge Plan Discharge Chief Complaint: Nausea/Vomiting/Diarrhea Clinical Impression: Nausea & vomiting Patient Disposition: Home, Self-Care Time of Disposition Decision: 12:04 Condition: Good Mode of Transportation: Private Vehicle Prescriptions / Home Meds: New promethazine 25 mg tablet 25 mg PO Q6H PRN (Reason: nausea and vomiting) Qty: 30 0RF No Action ondansetron 4 mg tablet,disintegrating 4 mg PO Q6H PRN (Reason: nausea and vomiting) Qty: 20 0RF clonidine HCl 0.2 mg tablet 0.2 mg PO Q8H trazodone 300 mg tablet 300 mg PO DAILY quetiapine [Seroquel] 100 mg tablet 100 mg PO DAILY Vivitrol 380 mg suspension,extended rel recon 380 mg IM .monthly Instructions: Acute Nausea and Vomiting (ED) Stand Alone Forms: Portal Instructions Referrals: Aurelio Chino MD [Primary Care Provider] - 1 week
[2023-06-25 08:33] LABS: Basophils Absolute Auto 0.1 10^3/uL (0.0-0.1); Basophils Percent Auto 0.8 % (0.2-2.0); Eosinophils Absolute Auto 0.1 10^3/uL (0.0-0.7); Eosinophils Percent Auto 1.7 % (0.9-7.0); Hematocrit 45.3 % (36.0-48.0); Hemoglobin 15.3 g/dL (12.0-16.0); Immature Granulocytes Abs Auto 0.05 10^3/uL (0.00-0.03); Immature Granulocytes Pct Auto 0.8 % (0.0-0.5); Lymphocytes Absolute Auto 1.5 10^3/uL (1.2-3.8); Lymphocytes Percent Auto 23.1 % (20.5-60.0); Mean Corpuscular HGB Conc 33.8 g/dL (29.9-35.2); Mean Corpuscular Hemoglobin 30.2 pg (26.7-34.0); Mean Corpuscular Volume 89.5 fL (81.0-99.0); Mean Platelet Volume 9.9 fL (9.5-13.5); Monocytes Absolute Auto 0.6 10^3/uL (0.3-0.8); Monocytes Percent Auto 8.9 % (1.7-12.0); Neutrophils Absolute Auto 4.3 10^3/uL (1.4-6.5); Neutrophils Percent Auto 64.7 % (43.0-75.0); Platelet Count 253 10^3/uL (150-450); Red Blood Count 5.06 10^6/uL (4.20-5.40); Red Cell Distribution Width 12.2 % (11.0-15.0); White Blood Count 6.6 10^3/uL (4.0-11.0)
[2023-06-25] MEDS: PROMETHAZINE HCL 25 MG/ML VIAL IM (09:30)
[2023-06-25 09:53] LABS: Alanine Aminotransferase 69 U/L (14-59); Albumin Globulin Ratio 0.9; Albumin Level 3.7 g/dL (3.4-5.0); Alkaline Phosphatase 61 U/L (46-116); Aspartate Amino Transferase 30 U/L (15-37); BUN Creatinine Ratio 19.1; Bilirubin Direct 0.1 mg/dL (0.0-0.2); Bilirubin Total 0.5 mg/dL (0.2-1.0); Carbon Dioxide 25.4 mmol/L (21.0-32.0); Chloride 104 mmol/L (98-107); Estimated GFR (African America >60 (>=60); Estimated GFR (Non-African Ame >60 (>=60); Globulin 3.9 g/dL; Glucose 115 mg/dL (74-106); Potassium 3.4 mmol/L (3.5-5.1); Sodium 140 mmol/L (136-145); Total Protein 7.6 g/dL (6.4-8.2)
[2023-06-25 10:36] LABS: Bilirubin Urine SMALL (NEGATIVE); Blood Urine NEGATIVE (NEGATIVE); Clarity Urine CLEAR (CLEAR); Color Urine YELLOW (YELLOW); Glucose Urine UA NEGATIVE (NEGATIVE); Ketones Urine >=80 mg/dL (NEGATIVE); Leukocyte Esterase Urine NEGATIVE (NEGATIVE); Nitrite Urine NEGATIVE (NEGATIVE); Protein Urine 30 mg/dL (NEG/TRACE); Specific Gravity Urine 1.025 (1.005-1.025)
[2023-06-25 10:42] LABS: Bacteria Urine TRACE #/HPF (NONE SEEN); Cast Seen? SEEN #/LPF (NONE SEEN); Crystals Seen? None Seen #/HPF (None Seen); Mucus Urine MODERATE (NONE SEEN); RBC Urine 0-2 #/HPF (0-2); Squamous Epithelial Cell Urine MODERATE #/LPF (NONE/RARE); WBC Urine NONE SEEN #/HPF (NONE SEEN)
[2023-06-25 10:43] LABS: Hyaline Casts Urine RARE
[2023-06-25] MEDS: LISINOPRIL 10 MG TABLET PO (10:54)
[2023-06-25] MEDS: CLONIDINE HCL 0.2 MG TABLET PO (10:55)
[2023-06-25 10:58] VITALS: BP 180/110
[2023-06-25 11:48] VITALS: BP 160/100
== END 2023-06-25 12:14 | disposition home or self-care (01) ==
PROVIDERS: Emergency Provider Emergency Medicine; PCP Family Medicine
DX: R11.2 Nausea with vomiting, unspecified (principal); Z79.899 Other long term (current) drug therapy; F17.210 Nicotine dependence, cigarettes, uncomplicated; Z90.710 Acquired absence of both cervix and uterus; F19.11 Other psychoactive substance abuse, in remission
CPT/HCPCS: 36415; 80048; 80076; 81001; 84703; 85025; 96372; 99284

== ENCOUNTER 2024-04-29 15:04 | Emergency (ER) | payer OTHER, SELFPAY ==
[2024-04-29 15:10] VITALS: BP 190/100; PULSE 89; TEMP 37.1; O2SAT 99; BMI 33.0
--- NOTE | 2024-04-29 15:20 | ED_ITS ---
HPI - Dental/Oral General Chief complaint: Dental/Oral Stated complaint: TOOTH PAIN Time Seen by Provider: 04/29/24 15:06 Source: patient Mode of arrival: walk-in Limitations: no limitations History of Present Illness HPI Narrative: 34-year-old female presents to the emergency department for dental pain. She is complaining of pain to the left upper anterior dentition. She notes that she has a bad tooth and she has been trying to get into see her dentist and has an appointment in about a week. The pain is throbbing and moderate to severe and continuous. Related Data Home Medications ?Medication ?Instructions ?Recorded ?Confirmed clonidine HCl 0.2 mg tablet 0.2 mg PO Q8H 05/06/23 04/29/24 quetiapine 100 mg tablet (Seroquel) 100 mg PO DAILY 05/06/23 04/29/24 trazodone 300 mg tablet 300 mg PO DAILY 05/06/23 04/29/24 Previous Rx's ?Medication ?Instructions ?Recorded ondansetron 4 mg disintegrating 4 mg PO Q6H PRN nausea and 03/19/23 tablet vomiting #20 tabs clindamycin HCl 300 mg capsule 300 mg PO Q6H 10 days #40 caps 04/29/24 ibuprofen 800 mg tablet 800 mg PO Q8H PRN pain #20 tabs 04/29/24 Allergies Allergy/AdvReac Type Severity Reaction Status Date / Time Penicillins Allergy Unknown Verified 06/25/23 08:09 Review of Systems ROS Narrative A ten point review of systems is negative except as noted above. [facility] Surgical History (Updated 05/06/23 @ 12:34 by Aurora Bishop RN) History of hysterectomy ?Z90.710 - Acquired absence of both cervix and uterus (ICD-10) Social History Smoking status: Current every day smoker Exam Narrative Exam Narrative: Nurses note and vital signs reviewed and patient is not hypoxic. General: The patient appears well and in no apparent distress. Patient is resting comfortably on cart. Skin: Warm, dry, no pallor noted. There is no rash noted. Head: Normocephalic, atraumatic Eye: Normal conjunctiva, no drainage Ears, Nose, Mouth, and Throat: oral mucosa is moist. Nares patent. Minimal swelling to the left upper anterior jaw region. There is no swelling to the floor of her mouth and she is handling oral secretions well. Dental caries noted in the left upper anterior dentition. No gingival swelling. Cardiovascular: Regular Rate and Rhythm Respiratory: Patient is in no distress, no accessory muscle use, lungs are clear to auscultation, no wheezing, rales or rhonchi Back: non-tender GI: Soft and nontender Musculoskeletal: No joint swelling Neurological: Awake and alert Psychiatric: Cooperative Constitutional Vital Signs, click to edit/add: Last Vital Signs Temp 98.8 F 04/29/24 15:10 Pulse 89 04/29/24 15:10 Resp 18 04/29/24 15:10 BP 190/100 H 04/29/24 15:10 Pulse Ox 99 04/29/24 15:10 O2 Del Method Room Air 04/29/24 15:10 Course Vital Signs Vital signs: Vital Signs Temperature 98.8 F 04/29/24 15:10 Pulse Rate 89 04/29/24 15:10 Respiratory Rate 18 04/29/24 15:10 Blood Pressure 190/100 H 04/29/24 15:10 Pulse Oximetry 99 04/29/24 15:10 Oxygen Delivery Method Room Air 04/29/24 15:10 Temperature 98.8 F 04/29/24 15:10 Pulse Rate 89 04/29/24 15:10 Respiratory Rate 18 04/29/24 15:10 Blood Pressure 190/100 H 04/29/24 15:10 Pulse Oximetry 99 04/29/24 15:10 Oxygen Delivery Method Room Air 04/29/24 15:10 MDM - Dental/Oral MDM Narrative Medical decision making narrative: She has a history of opiate addiction so we will avoid narcotics. She was given IM Toradol and prescribed clindamycin and ibuprofen. Treatment diagnosis and follow-up were discussed with the patient. Differential Diagnosis Differential diagnosis: Likely gingival abscess, dental caries, toothache and dental abscess Discharge Plan Discharge Stand Alone Forms: Portal Instructions Chief Complaint: Dental/Oral Clinical Impression: Toothache, Dental caries Patient Disposition: Home, Self-Care Time of Disposition Decision: 15:16 Condition: Good Mode of Transportation: Private Vehicle Prescriptions / Home Meds: New clindamycin HCl 300 mg capsule 300 mg PO Q6H 10 Days Qty: 40 0RF ibuprofen 800 mg tablet 800 mg PO Q8H PRN (Reason: pain) Qty: 20 0RF No Action ondansetron 4 mg tablet,disintegrating 4 mg PO Q6H PRN (Reason: nausea and vomiting) Qty: 20 0RF clonidine HCl 0.2 mg tablet 0.2 mg PO Q8H trazodone 300 mg tablet 300 mg PO DAILY quetiapine [Seroquel] 100 mg tablet 100 mg PO DAILY Print Language: Upper Sorbian Instructions: Toothache (ED), Tooth Extraction (DC) Referrals: Aurelio Chino MD [Primary Care Provider] - 1 week
[2024-04-29] MEDS: KETOROLAC TROMETHAMINE 60 MG/2 ML VIAL IM (15:50)
== END 2024-04-29 16:07 | disposition home or self-care (01) ==
LOC: ER 15:36
PROVIDERS: Emergency Provider Emergency Medicine; PCP Family Medicine
DX: K08.89 Other specified disorders of teeth and supporting structures (principal); K02.9 Dental caries, unspecified; F17.200 Nicotine dependence, unspecified, uncomplicated
CPT/HCPCS: 96372; 99284; J1885

== ENCOUNTER 2025-06-16 06:21 | Emergency (ER) | payer SELFPAY ==
[2025-06-16] VITALS (9 sets, daily range): BP systolic 154–205; BP diastolic 105–127; PULSE 74–84; TEMP 36.8; O2SAT 98–100; BMI 28.9
--- OUTSIDE RECORDS SUMMARY | 2025-06-16 06:41 | XMS_ITS | Clinical Summary ---
Author Organization [facility] Address [address] [place] [address], [address] [place] [address] Care Team Providers Care Weatherization Administrator Name Role Phone Aurelio Chino MD Primary Care Provider [phone] Allergies Active Allergy Reactions Criticality Noted Date Comments Penicillins 10/28/2019 Medications amLODIPine (NORVASC) 5 MG tablet Take 1 tablet by mouth daily 30 tablet 10/28/2019 Active naproxen (NAPROSYN) 500 MG tablet Take 1 tablet by mouth 2 times daily as needed for Pain (with meals) 20 tablet 06/06/2022 Active Social History Tobacco Use Types Packs/Day Years Used Date Smoking Tobacco: Every Day Cigarettes Passive Smoke Exposure: Never Smokeless Tobacco: Never Tobacco Cessation:Ready to Q uit: Not Asked; Counseling Given: No Comments No Sex and Gender Information Value Date Recorded Sex Assigned at Not on file Legal Sex Female 10:40 AM EST Gender Identity Not on file Sexual Orientation Not on file Last Filed Vital Signs Vital Sign Reading Time Taken Comments Blood Pressure 183/95 06/06/2022 6:54 PM EDT Pulse 91 06/06/2022 4:16 PM EDT Temperature 38.4 C (101.2 F) 06/06/2022 4:13 PM EDT Respiratory Rate 16 06/06/2022 4:16 PM EDT Oxygen Saturation 98% 06/06/2022 6:54 PM EDT Inhaled Oxygen Concentration - - Weight - - Height - - Body Mass Index - - Plan of Treatment Health Maintenance Due Date Last Done Comments Depression Screen 2001 Varicella vaccine (1 of 2 - 13+ 2-dose series) 2002 DTaP/Tdap/Td vaccine (1 - Tdap) 2008 Hepatitis B vaccine (1 of 3 - 19+ 3-dose series) 2008 Pneumococcal 0-49 years Vaccine (1 of 2 - PCV) 2008 Pap smear 2010 Cervical cancer screen 2019 HPV (without or with Pap) 2019 Flu vaccine (#1) 04/21/2025 COVID-19 Vaccine ( - season) 2025 HIV screen Completed 08/25/2022, 12/21, 10/28/2019 Hepatitis C screen Completed 08/25/2022, 1 10/26/2021, 01/16/2021, Additional history exists HPV vaccine (No Doses Required) Completed Hepatitis A vaccine Aged Out No longe r eligible based on patient's age to complete this topic Hib vaccine Aged Out No longer eligi ble based on patient's age to complete this topic Meningococcal (ACWY) vaccine Aged Out No longer eligible based on patient's age to complete this topic Meningococcal B vaccine Aged Out No l onger eligible based on patient's age to complete this topic Polio vaccine Aged Out No longer elig ible based on patient's age to complete this topic Procedures Procedure Name Priority Date/Time Associated Diagnosis Comments HIV SCREEN Routine 08/25/2022 8:45 AM EST HEPATITIS PANEL, ACUTE Routine 08/25/2022 8:45 AM EST from Last 3 Months or Most Recently Relevant to Health Maintenance Results * (ABNORMAL) Hepatitis Panel, Acute (08/25/2022 8:45 AM EST) Hepatitis B Surface Ag NONREACTIVE NONREACTIVE 08/25/2022 8:45 AM EST [employer] [facility] [employer] Hepatitis C Ab REACTIVE(A) NONREACTIVE 08/25/20 22 8:45 AM EST [facility] [facility] [employer] Comment: The hepatitis C procedure used in our laboratory is a Chemiluminescent test specific for three recombinant HCV antigens. A negative anti-HCV result indicates that the antibodies to hepatitis C virus are not present at this time. Individuals with reactive anti-HCV should be considered infected and infectious until proven otherwise. Confirmation of all equivocal or reactive results is recommended by ordering HCV RNA by PCR. Results reported to the appropriate Health Department Hep B Core Ab, IgM NONREACTIVE NONREACTIVE 01/2022 8:45 AM EST [facility] [facility] Hep A IgM NONREACTIVE NONREACTIVE 08/25/2022 8:45 AM EST [facility] [facility] 08/25/2022 8:45 AM EST 08/25/2022 9:14 AM EST Corona Nunez APRN - [facility] IMMUNOLOGY ORDERABLES F inal Result Performing Organization Address [facility]/ZIP Co de Phone Number [facility] [address] [place] [address], [facility] [phone] [employer] [facility] [employer] [address] [place] [id number], [facility] [phone] * HIV Screen (08/25/2022 8:45 AM EST) HIV Ag/Ab NONREACTIVE NONREACTIVE 08/25/2022 8:45 AM EST [employer] [facility] [employer] Comment: No laboratory evidence of HIV infection. If acute HIV infection is suspected, consider testing for HIV-1 RNA. 08/25/2022 8:45 AM EST 08/25/2022 9:14 AM EST Corona Nunez APRN [facility] IMMUNOLOGY ORDERABLES F inal Result Performing Organization Address [facility] Co de Phone Number [facility] [address] [place] [address], [facility] [phone] [id number] [address] [place] [address] from Last 3 Months or Most Recently Relevant to Health Maintenance Insurance [facility] MEDICAID Member Subscriber Plan / Payer (Ef fective 2015-Present) Name:Shanice Vo Relation to Subscriber:Self Name:Shanice Vo Payer ID:Not on file Type:Not on file Address: [address] [address] Care Teams Weatherization Administrator Relationship Specialty Start Date End Date Aurelio Chino MD [address] [place] [address] PCP - General Family Medicine 06/06/22
--- OUTSIDE RECORDS SUMMARY | 2025-06-16 06:41 | XMS_ITS | CCD ---
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 been optimized for HCV genotypes 1-6. Results reported to the appropriate Health Department Performed By: #### H CVQN #### [facility] [address] [place] [address] Manager Primary Care: Jimmy Lombardo MD [facility] [address] [place] [address] [place] [address] Manager Primary Care: Nate Blas MD HCV,RNA Log 4.55 Log IU/mL [facility] [place] Comment on above: Performed By: #### H CVQN #### [facility] [address] [place] [address] Manager Primary Care: Jimmy Lombardo MD [facility] [address] [place] [address] Dr. [place], [place] [phone] Manager Primary Care: Nate Blas MD HCV RNA,Quant,PCRon 08-26-20 22 Source .PLASMA Normal [facility] Comment on above: Performed By: #### H CVQN #### [address] [address] Manager Primary Care: Jimmy Lombardo MD [address] [place] [phone] Manager Primary Care: Nate Blas MD CBCon 08-25-2022 Erythrocyte distribution width (RBC) [Ratio] 13.3 % Normal 11.8-14.4 [facility] Comment on above: Performed By: #### C P, HCG, CBC #### [address] [place], [place] [phone] Manager Primary Care: Nate Blas MD #### PHEP, HIVCMB #### [address] [address] Manager Primary Care: Jimmy Lombardo MD Hematocrit (Bld) [Volume fraction] 44.5 % Normal 36.3-47.1 [facility] Comment on above: Performed By: #### C P, HCG, CBC #### [address] [place] [phone] Manager Primary Care: Nate Blas MD #### PHEP, HIVCMB #### [address] [address] Manager Primary Care: Jimmy Lombardo MD Hemoglobin (Bld) [Mass/Vol] 14.5 g/dL Normal 11.9-15.1 [facility] Comment on above: Performed By: #### C P, HCG, CBC #### [address] [place], [place] [phone] Manager Primary Care: Nate Blas MD #### PHEP, HIVCMB #### [address] [address] Manager Primary Care: Jimmy Lombardo MD MCH (RBC) [Entitic mass] 27.6 pg Normal 25.2-33.5 [facility] Comment on above: Performed By: #### C P, HCG, CBC #### [facility] [address] [place] [address] Dr. [place] [phone] Manager Primary Care: Nate Blas MD #### PHEP, HIVCMB #### [address] [phone] Manager Primary Care: Jimmy Lombardo MD MCHC (RBC) [Mass/Vol] 32.6 g/dL Normal 28.4-34.8 [facility] Comment on above: Performed By: #### C P, HCG, CBC #### [address] [place] [phone] Manager Primary Care: Nate Blas MD #### PHEP, HIVCMB #### [address] [phone] Manager Primary Care: Jimmy Lombardo MD MCV (RBC) [Entitic vol] 84.8 fL Normal 82.6-102.9 [facility] Comment on above: Performed By: #### C P, HCG, CBC #### [address] [place] [phone] Manager Primary Care: Nate Blas MD #### PHEP, HIVCMB #### [address] [address] Manager Primary Care: Jimmy Lombardo MD NRBC Automated 0.0 per 100 WBC Normal 0.0 [facility] Comment on above: Performed By: #### C P, HCG, CBC #### [address] [place], [place] [phone] Manager Primary Care: Nate Blas MD #### PHEP, HIVCMB #### [address] [address] Manager Primary Care: Jimmy Lombardo MD Platelet mean volume (Bld) [Entitic vol] 9.7 fL Normal 8.1-13.5 [facility] Comment on above: Performed By: #### C P, HCG, CBC #### [facility] [address] [place], [place] [phone] Manager Primary Care: Nate Blas MD #### PHEP, HIVCMB #### [address] [place] [address] Manager Primary Care: Jimmy Lombardo MD Platelets (Bld) [#/Vol] 245 10*3/uL Normal 138-453 [facility] Comment on above: Performed By: #### C P, HCG, CBC #### [facility] [address] [place] [address] Dr. [place] [phone] Manager Primary Care: Nate Blas MD #### PHEP, HIVCMB #### [address] [address] Manager Primary Care: Jimmy Lombardo MD RBC (Bld) [#/Vol] 5.25 10*6/uL High 3.95-5.11 [facility] Comment on above: Performed By: #### C P, HCG, CBC #### [address] [place], [place] [phone] Manager Primary Care: Nate Blas MD #### PHEP, HIVCMB #### [address] [address] Manager Primary Care: Jimmy Lombardo MD WBC (Bld) [#/Vol] 6.7 10*3/uL Normal 3.5-11.3 [facility] Comment on above: Performed By: #### C P, HCG, CBC #### [facility] [address] [place], [place] 4965583 Manager Primary Care: Nate Blas MD #### PHEP, HIVCMB #### [address] [place] [address] Manager Primary Care: Jimmy Lombardo MD Comp Metabolic Profon 2021 Albumin [Mass/Vol] 4.3 g/dL Normal 3.5-5.2 [facility] Comment on above: Performed By: #### C P, HCG, CBC #### [facility] [address] [place] [address] Dr. [place] [phone] Manager Primary Care: Nate Blas MD #### PHEP, HIVCMB #### [address] [place] [address] Manager Primary Care: Jimmy Lombardo MD Albumin/Glob Ratio 1.4 Normal 1.0-2.5 [facility] Comment on above: Performed By: #### C P, HCG, CBC #### [address] [place] [phone] Manager Primary Care: Nate Blas MD #### PHEP, HIVCMB #### [address] [address] Manager Primary Care: Jimmy Lombardo MD Alkaline Phos 98 U/L Normal 35-104 [facility] Comment on above: Performed By: #### C P, HCG, CBC #### [address] [place] [phone] Manager Primary Care: Nate Blas MD #### PHEP, HIVCMB #### [address] [place] [address] Manager Primary Care: Jimmy Lombardo MD ALT [Catalytic activity/Vol] 14 U/L Normal 5-33 [facility] Comment on above: Performed By: #### C P, HCG, CBC #### [address] [place], [place] [phone] Manager Primary Care: Nate Blas MD #### PHEP, HIVCMB #### [facility] [address] [place], [place] [phone] Manager Primary Care: Jimmy Lombardo MD Anion gap [Moles/Vol] 11 mmol/L Normal 9-17 [facility] Comment on above: Performed By: #### C P, HCG, CBC #### [facility] [address] [place], [place] 6403283 Manager Primary Care: Nate Blas MD #### PHEP, HIVCMB #### [address] [phone] Manager Primary Care: Jimmy Lombardo MD AST [Catalytic activity/Vol] 13 U/L Normal <32 [facility] Comment on above: Performed By: #### C P, HCG, CBC #### [facility] [address] [place], [place] [phone] Manager Primary Care: Nate Blas MD #### PHEP, HIVCMB #### [address] [phone] Manager Primary Care: Jimmy Lombardo MD Bilirubin [Mass/Vol] 0.3 mg/dL Normal 0.3-1.2 [facility] Comment on above: Performed By: #### C P, HCG, CBC #### [facility] [address] [place], [place] [phone] Manager Primary Care: Nate Blas MD #### PHEP, HIVCMB #### [address] [phone] Manager Primary Care: Jimmy Lombardo MD BUN/CRE Ratio 22 High 9-20 [facility] Comment on above: Performed By: #### C P, HCG, CBC #### [facility] [address] [place], [place] [phone] Manager Primary Care: Nate Blas MD #### PHEP, HIVCMB #### [address] [address] Manager Primary Care: Jimmy Lombardo MD Calcium [Mass/Vol] 9.6 mg/dL Normal 8.6-10.4 [facility] Comment on above: Performed By: #### C P, HCG, CBC #### [facility] [address] [place], [place] 4778783 Manager Primary Care: Nate Blas MD #### PHEP, HIVCMB #### [address] [phone] Manager Primary Care: Jimmy Lombardo MD Chloride [Moles/Vol] 106 mmol/L Normal 98-107 [facility] Comment on above: Performed By: #### C P, HCG, CBC #### [facility] [address] [place], [place] [phone] Manager Primary Care: Nate Blas MD #### PHEP, HIVCMB #### [address] [phone] Manager Primary Care: Jimmy Lombardo MD CO2 [Moles/Vol] 25 mmol/L Normal 20-31 [facility] Comment on above: Performed By: #### C P, HCG, CBC #### [facility] [address] [place], [place] [phone] Manager Primary Care: Naet Blas MD #### PHEP, HIVCMB #### [address] [address] Manager Primary Care: Jimmy Lombardo MD Creatinine [Mass/Vol] 0.65 mg/dL Normal 0.50-0.90 [facility] Comment on above: Performed By: #### C P, HCG, CBC #### [facility] [address] [place], [place] [phone] Manager Primary Care: Nate Blas MD #### PHEP, HIVCMB #### [address] [phone] Manager Primary Care: Jimmy Lombardo MD GFR/1.73 sq M.predicted among non-blacks MDRD (S/P/Bld) [Vol rate/Area] mL/min/{1.73_m2} Normal >60 [facility] Comment on above: Result Comment: Effective Jun 23, 2022 These results are not intended for use in patients <18 years of age. eGFR results are calculated without a race factor using the 2020 CKD-EPI equation. Careful clinical correlation is recommended, particularly when comparing to results calculated using previous equations. The CKD-EPI equation is less accurate in patients with extremes of muscle mass, extra-renal metabolism of creatine, excessive creatine ingestion, or following therapy that affects renal tubular secretion. Performed By: #### C P, HCG, CBC #### [facility] [address] [place] [address] [place], [place] [phone] Manager Primary Care: Nate Blas MD #### PHEP, HIVCMB #### [address] [phone] Manager Primary Care: Jimmy Lombardo MD Glucose [Mass/Vol] 115 mg/dL High 70-99 [facility] Comment on above: Performed By: #### C P, HCG, CBC #### [facility] [address] [place] [address] [place], [place] 1767783 Manager Primary Care: Nate Blas MD #### PHEP, HIVCMB #### [address] [address] Manager Primary Care: Jimmy Lombardo MD Potassium [Moles/Vol] 3.8 mmol/L Normal 3.7-5.3 [facility] Comment on above: Performed By: #### C P, HCG, CBC #### [facility] [address] [place] [address] Dr. [place], [place] [phone] Manager Primary Care: Nate Blas MD #### PHEP, HIVCMB #### [address] [phone] Manager Primary Care: Jimmy Lombardo MD Protein [Mass/Vol] 7.4 g/dL Normal 6.4-8.3 [facility] Comment on above: Performed By: #### C P, HCG, CBC #### [facility] [address] [place], [place] [phone] Manager Primary Care: Nate Blas MD #### PHEP, HIVCMB #### [facility] [address] [place], [place] [phone] Manager Primary Care: Jimmy Lombardo MD Sodium [Moles/Vol] 142 mmol/L Normal 135-144 [facility] Comment on above: Performed By: #### C P, HCG, CBC #### [facility] [address] [place], [place] [phone] Manager Primary Care: Nate Blas MD #### PHEP, HIVCMB #### [address] [place], [place] [phone] Manager Primary Care: Jimmy Lombardo MD Urea nitrogen [Mass/Vol] 14 mg/dL Normal 6-20 [facility] Comment on above: Performed By: #### C P, HCG, CBC #### [facility] [address] [place], [place] 0253883 Manager Primary Care: Nate Blas MD #### PHEP, HIVCMB #### [facility] [address] [place], [place] [phone] Manager Primary Care: Jimmy Lombardo MD HCG Screen, Bloodon 08-25-20 22 HCG Screen, Blood Negative Normal [facility] Comment on above: Result Comment: Spec imens with hCG levels near the threshold of the test (25 mIU/mL) may give a negative or indeterminate result. In such cases, another test should be performed with a new specimen in 48-72 hours. If early is suspected clinically in this setting, correlation with quantitative serum b-hCG level is suggested. [facility] has confirmed the use of plasma for this test. This has not been cleared or approved by the U.S. Food and Drug Administration. The FDA has determined that such clearance is not necessary. Performed By: #### C P, HCG, CBC #### [address] [place] [address] Manager Primary Care: Nate Blas MD #### PHEP, HIVCMB #### [address] [phone] Manager Primary Care: Jimmy Lombardo MD HIV Ag/Abon 08-25-2022 HIV Ag/Ab Non-Reactive Normal [facility] Comment on above: Result Comment: No l aboratory evidence of HIV infection. If acute HIV infection is suspected, consider testing for HIV-1 RNA. Performed By: #### C P, HCG, CBC #### [address] [place] [address] Manager Primary Care: Nate Blas MD #### PHEP, HIVCMB #### [address] [phone] Manager Primary Care: Jimmy Lombardo MD Hepatitis Acute [facility] 08-25 Hep A Ab,IgM Non-Reactive Normal [facility] Comment on above: Performed By: #### C P, HCG, CBC #### [address] [place] [address] Manager Primary Care: Nate Blas MD #### PHEP, HIVCMB #### [address] [phone] Manager Primary Care: Jimmy Lombardo MD Hep B Core Ab,IgM Non-Reactive Normal [facility] Comment on above: Performed By: #### C P, HCG, CBC #### [address] [place] [address] Manager Primary Care: Nate Blas MD #### PHEP, HIVCMB #### [address] [place] [address] Manager Primary Care: Jimmy Lombardo MD Hep B Surf Ag Non-Reactive Normal NR [facility] Comment on above: Performed By: #### C P, HCG, CBC #### [address] [place], [place] 2754983 Manager Primary Care: Nate Blas MD #### PHEP, HIVCMB #### [facility] [address] [place] [address] Manager Primary Care: Jimmy Lombardo MD Hep C Ab Reactive Abnormal NR [facility] Comment on above: Result Comment: The hepatitis C procedure used in [...] Results reported to the appropriate Health Department Performed By: #### C P, HCG, CBC #### [address] [place], [place] [phone] Manager Primary Care: Nate Blas MD #### PHELupillo, HIVCMB #### [address] [place], [place] [phone] Manager Primary Care: Jimmy Lombardo MD CBC with Diffon 06-06-2022 Abs. Basophil 0.03 k/uL Normal 0.00-0.20 [facility] Comment on above: Performed By: #### C P, CDP #### [facility] [address] [place] [address] [place] [address] Manager Primary Care: Nate Blas MD Abs.Imm.Granulocyte 0.03 k/uL Normal 0.00-0.30 [facility] Comment on above: Performed By: #### C P, CDP #### [address] [place], [place] [phone] Manager Primary Care: Nate Blas MD Abs.Neutrophil (Seg) 6.37 k/uL Normal 1.50-8.10 [facility] Comment on above: Performed By: #### C P, CDP #### [address] [place] [address] Manager Primary Care: Nate Blas MD Basophils/100 WBC (Bld) 0 % Normal 0-2 [facility] Comment on above: Performed By: #### C P, CDP #### [address] [place], [place] [address] Manager Primary Care: Nate Blas MD Eosinophils (Bld) [#/Vol] 0.17 10*3/uL Normal 0.00-0.44 [facility] Comment on above: Performed By: #### C P, CDP #### [address] [place] [phone] Manager Primary Care: Nate Blas MD Eosinophils/100 WBC (Bld) 2 % Normal 1-4 [facility] Comment on above: Performed By: #### C P, CDP #### [address] [place] [phone] Manager Primary Care: Nate Blas MD Erythrocyte distribution width (RBC) [Ratio] 12.8 % Normal 11.8-14.4 [facility] Comment on above: Performed By: #### C P, CDP #### [address] [place] [address] Manager Primary Care: Nate Blas MD Hematocrit (Bld) [Volume fraction] 46.2 % Normal 36.3-47.1 [facility] Comment on above: Performed By: #### C P, CDP #### [address] [place] [address] Manager Primary Care: Nate Blas MD Hemoglobin (Bld) [Mass/Vol] 14.5 g/dL Normal 11.9-15.1 [facility] Comment on above: Performed By: #### C P, CDP #### [facility] [address] [place], [place] [phone] Manager Primary Care: Nate Blas MD Immature granulocytes/100 WBC (Bld) 0 % Normal 0 [facility] Comment on above: Performed By: #### C P, CDP #### [address] [place], [facility] Manager Primary Care: Nate Blas MD Lymphocytes (Bld) [#/Vol] 1.22 10*3/uL Normal 1.10-3.70 [facility] Comment on above: Performed By: #### C P, CDP #### [address] [place], [place] 4820183 Manager Primary Care: Nate Blas MD Lymphocytes/100 WBC (Bld) 14 % Low 24-43 [facility] Comment on above: Performed By: #### C P, CDP #### [address] [place], [facility]83 Manager Primary Care: Nate Blas MD MCH (RBC) [Entitic mass] 27.7 pg Normal 25.2-33.5 [facility] Comment on above: Performed By: #### C P, CDP #### [address] [place], [facility]83 Manager Primary Care: Nate Blas MD MCHC (RBC) [Mass/Vol] 31.4 g/dL Normal 28.4-34.8 [facility] Comment on above: Performed By: #### C P, CDP #### [address] [place], [place] [phone] Manager Primary Care: Nate Blas MD MCV (RBC) [Entitic vol] 88.2 fL Normal 82.6-102.9 [facility] Comment on above: Performed By: #### C P, CDP #### [facility] [address] [place], [place] [phone] Manager Primary Care: Nate Blas MD Monocytes (Bld) [#/Vol] 1.01 10*3/uL Normal 0.10-1.20 [facility] Comment on above: Performed By: #### C P, CDP #### [facility] [address] [place], [place] [phone] Manager Primary Care: Nate Blas MD Monocytes/100 WBC (Bld) 11 % Normal 3-12 [facility] Comment on above: Performed By: #### C P, CDP #### [address] [place], [place] [address] Manager Primary Care: Nate Blas MD Neutrophil (Seg) 73 % High 36-[address] [facility] Comment on above: Performed By: #### C P, CDP #### [address] [place], [facility]83 Manager Primary Care: Nate Blas MD NRBC Automated 0.0 per 100 WBC Normal 0.0 [facility] Comment on above: Performed By: #### C P, CDP #### [address] [place], [facility]83 Manager Primary Care: Nate Blas MD Platelet mean volume (Bld) [Entitic vol] 9.9 fL Normal 8.1-13.5 [facility] Comment on above: Performed By: #### C P, CDP #### [address] [place], [facility]83 Manager Primary Care: Nate Blas MD Platelets (Bld) [#/Vol] 205 10*3/uL Normal 138-453 [facility] Comment on above: Performed By: #### C P, CDP #### [address] [place], [place] 9791383 Manager Primary Care: Nate Blas MD RBC (Bld) [#/Vol] 5.24 10*6/uL High 3.95-5.11 [facility] Comment on above: Performed By: #### C P, CDP #### [facility] [address] [place] [address] Manager Primary Care: Nate Blas MD WBC (Bld) [#/Vol] 8.8 10*3/uL Normal 3.5-11.3 [facility] Comment on above: Performed By: #### C P, CDP #### [facility] [address] [place] [address] Manager Primary Care: Nate Blas MD CT ABDOMEN PELVIS WO CONTRAS Ton 06-06-2022 CT ABDOMEN PELVIS WO CONTRAST EXAMINATION: CT OF THE ABDOMEN AND PELVIS WITHOUT CONTRAST 06/06/2022 6:27 pm TECHNIQUE: CT of the abdomen and pelvis was performed without the administration of intravenous contrast. Multiplanar reformatted images are provided for review. Automated exposure control, iterative reconstruction, and/or weight based adjustment of the mA/kV was utilized to reduce the radiation dose to as low as reasonably achievable. COMPARISON: None. HISTORY: ORDERING SYSTEM PROVIDED HISTORY: left flank pain TECHNOLOGIST PROVIDED HISTORY: left flank pain Decision Support Exception - unselect if not a suspected or confirmed emergency medical condition->Emergency Medical Condition (MA) Is the patient ?->No FINDINGS: Lower Chest: 2 mm solid nodule of the left lower lobe on series 2, image 14. This is of doubtful clinical significance and no specific follow-up imaging is indicated. Organs: Liver is normal in contour and attenuation. Gallbladder surgically absent. No biliary ductal dilatation. Pancreas, adrenals kidneys, spleen, vasculature unremarkable. GI/Bowel: Bowel is nondilated without wall thickening. Large volume stool throughout the colon. Appendix is normal. Pelvis: Asymmetric fullness of the right ovary. Peritoneum/Retroperit oneum: No free air, free fluid, organized fluid collection lymphadenopathy. Bones/Soft Tissues: No acute bone or soft tissue abnormality. Subacute or chronic appearing mild compression deformity of L1. IMPRESSION: 1. No acute process in the abdomen or pelvis. 2. Subacute or chronic appearing mild compression deformity of L1. 3. Large volume stool throughout the colon. Interpreted by: Richie Flores MD Signed by: Richie Flores MD 06/06/22 Final result Normal [facility] Comp Metabolic Profon 2021 (cont.) Normal [facility] Comment on above: Result Comment: Aver age GFR for 30-39 years old: 107 mL/min/1.73sq m Chronic Kidney Disease: <60 mL/min/1.73sq m Kidney failure: <15 mL/min/1.73sq m eGFR calculated using average adult body mass. Additional eGFR calculator available at: http://www.[employer]/multiple_crcl_2012.htm Performed By: #### C P, CDP #### [facility] [address] [place] [address] Dr. [place], [place] [id number] Manager Primary Care: Nate Blas MD Albumin [Mass/Vol] 4.2 g/dL Normal 3.5-5.2 [facility] Comment on above: Performed By: #### C P, CDP #### [facility] [address] [place] [address] [place] [address] Manager Primary Care: Nate Blas MD Albumin/Glob Ratio 1.1 Normal 1.0-2.5 [facility] Comment on above: Performed By: #### C P, CDP #### [facility] [address] [place] [address] [address]. [place], [place] [id number] Manager Primary Care: Nate Blas MD Alkaline Phos 119 U/L High 35-104 [facility] Comment on above: Performed By: #### C P, CDP #### [facility] [address] [place] [address] Manager Primary Care: Nate Blas MD ALT [Catalytic activity/Vol] 16 U/L Normal 5-33 [facility] Comment on above: Performed By: #### C P, CDP #### [facility] [address] [place], [place] [id number] Manager Primary Care: Nate Blas MD Anion gap [Moles/Vol] 11 mmol/L Normal 9-17 [facility] Comment on above: Performed By: #### C P, CDP #### [facility] [address] [place], [place] [id number] Manager Primary Care: Nate Blas MD AST [Catalytic activity/Vol] 17 U/L Normal <32 [facility] Comment on above: Performed By: #### C P, CDP #### [facility] [address] [place], [place] [id number] Manager Primary Care: Nate Blas MD Bilirubin [Mass/Vol] 0.5 mg/dL Normal 0.3-1.2 [facility] Comment on above: Performed By: #### C P, CDP #### [facility] [address] [place], [place] [id number] Manager Primary Care: Nate Blas MD BUN/CRE Ratio 25 High 9-20 [facility] Comment on above: Performed By: #### C P, CDP #### [facility] [address] [place], [place] [id number] Manager Primary Care: Nate Blas MD Calcium [Mass/Vol] 9.6 mg/dL Normal 8.6-10.4 [facility] Comment on above: Performed By: #### C P, CDP #### [facility] [address] [place], [place] [id number] Manager Primary Care: Nate Blas MD Chloride [Moles/Vol] 99 mmol/L Normal 98-107 [facility] Comment on above: Performed By: #### C P, CDP #### [facility] [address] [place], [place] [id number] Manager Primary Care: Nate Blas MD CO2 [Moles/Vol] 27 mmol/L Normal 20-31 [facility] Comment on above: Performed By: #### C P, CDP #### [facility] [address] [place], [place] [id number] Manager Primary Care: Nate Blas MD Creatinine [Mass/Vol] 0.64 mg/dL Normal 0.50-0.90 [facility] Comment on above: Performed By: #### C P, CDP #### [facility] [address] [place], [place] 8000483 Manager Primary Care: Nate Blas MD GFR, Amer >60 Normal >[address] [facility] Comment on above: Performed By: #### C P, CDP #### [facility] [address] [place] [address] Manager Primary Care: Nate Blas MD GFR,non Amer >60 Normal >60 [facility] Comment on above: Performed By: #### C P, CDP #### [facility] [address] [place] [address] Dr. [place], [place] [id number] Manager Primary Care: Nate Blas MD Glucose [Mass/Vol] 114 mg/dL High 70-99 [facility] Comment on above: Performed By: #### C P, CDP #### [facility] [address] [place] [address] Dr. [place], [place] [phone] Manager Primary Care: Nate Blas MD Potassium [Moles/Vol] 4.0 mmol/L Normal 3.7-5.3 [facility] Comment on above: Performed By: #### C P, CDP #### [facility] [address] [place] [address] Dr. [place], [place] [id number] Manager Primary Care: Nate Blas MD Protein [Mass/Vol] 8.2 g/dL Normal 6.4-8.3 [facility] Comment on above: Performed By: #### C P, CDP #### [facility] [address] [place], [place] [phone] Manager Primary Care: Nate Blas MD Sodium [Moles/Vol] 137 mmol/L Normal 135-144 [facility] Comment on above: Performed By: #### C P, CDP #### [facility] [address] [place] [address] Manager Primary Care: Nate Blas MD Staging: Normal [facility] Comment on above: Result Comment: Stag e 1: Some kidney damage normal GFR Stage 2: Mild kidney damage GFR 60-89 Stage 3: Moderate kidney damage GFR 30-59 Stage 4: Severe kidney damage GFR 15-29 Stage 5: Severe kidney damage GFR <15 ESRD - chronic treatment by dialysis or transplant Performed By: #### C P, CDP #### [facility] [address] [place] [address] [place] [address] Manager Primary Care: Nate Blas MD Urea nitrogen [Mass/Vol] 16 mg/dL Normal 6-20 [facility] Comment on above: Performed By: #### C P, CDP #### [address] [place] [address] Manager Primary Care: Nate Blas MD Urinalysis w/ Microon 2021 Amorphous sediment LM Ql (Urine sed) 1+ Abnormal [facility] Comment on above: Performed By: #### U AMIC #### [address] [place] [address] Manager Primary Care: Nate Blas MD Bacteria 1+ Abnormal [facility] Comment on above: Performed By: #### U AMIC #### [facility] [address] [place] [address] [place] [address] Manager Primary Care: Nate Blas MD Bilirubin, SemiQt,Ur Negative Normal NEG [facility] Comment on above: Performed By: #### U AMIC #### [address] [place] [address] Manager Primary Care: Nate Blas MD Blood, Urine Negative Normal NEG [facility] Comment on above: Performed By: #### U AMIC #### [facility] [address] [place] [address] [place] [address] Manager Primary Care: Nate Blas MD Clarity (U) SLIGHTLY CLOUDY Abnormal CLEAR [facility] Comment on above: Performed By: #### U AMIC #### [facility] [address] [place], [place] [phone] Manager Primary Care: Nate Blas MD Color (U) Yellow Normal YEL [facility] Comment on above: Performed By: #### U AMIC #### [facility] [address] [place] [address] Dr. [place], [place] [phone] Manager Primary Care: Nate Blas MD Epithelial cells LM Ql (Urine sed) 2 TO 5 Normal 0-25 [facility] Comment on above: Performed By: #### U AMIC #### [facility] [address] [place] [address] Dr. [place], [place] [phone] Manager Primary Care: Nate Blas MD Glucose Ql (U) Negative Normal NEG [facility] Comment on above: Performed By: #### U AMIC #### [facility] [address] [place] [address] Dr. [place], [place] [phone] Manager Primary Care: Nate Blas MD Ketones Ql (U) Negative Normal NEG [facility] Comment on above: Performed By: #### U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 Phone: Bacteria, UA TRACE Abnormal None [employer] Work Phone: Casts UA NOT REPORTED /LPF [employer] Work Phone: Crystals UA NOT REPORTED None /HPF [employer] [facility] [employer] Work Phone: Epithelial Cells UA 0 TO 2 [facility] Work Phone: Interpretation and review of laboratory results Abnormal [employer] Work Phone: Mucus, UA NOT REPORTED None [facility] Phone: Other Observations UA NOT REPORTED NOT REQ. [facility] Work Phone: RBC (U) [#/Vol] 0 TO 2 [employer] [facility] Work Phone: Renal Epithelial, Urine NOT REPORTED 0 /HPF [facility] Work Phone: Trichomonas, UA NOT REPORTED None [employer] Work Phone: WBC, UA 0 TO 2 [employer] Work Phone: Yeast, UA NOT REPORTED None [facility] Phone: - [facility] Phone: , Urineon 0 Beta HCG ( test) Ql (U) Negative NEGATIVE [facility] Phone: Comment on above: Specimens with hCG l evels near the threshold of the test (25 mIU/mL) may give a negative or indeterminate result. In such cases, another test should be performed with a new specimen in 48-72 hours. If early is suspected clinically in this setting, correlation with quantitative serum b-hCG level is suggested. [facility] has confirmed the use of plasma for this test. This has not been cleared or approved by the U.S. Food and Drug Administration. The FDA has determined that such clearance is not necessary. Troponinon 10-28-2019 Troponin I.cardiac [Mass/Vol] NOT REPORTED [facility] Phone: Troponin T.cardiac [Mass/Vol] NOT REPORTED <0.03 ng/mL [facility] Phone: Troponin, High Sensitivity <6 0 - 14 ng/L [facility] [employer] Phone: Comment on above: High Sensitivity Troponin values cannot be compared with other Troponin methodologies. Patients with high levels of Biotin oral intake (i.e >5mg/day) may have falsely decreased Troponin levels. Samples collected within 8 hours of biotin intake may require additional information for diagnosis. Urinalysis Reflex to Culture on 10-28-2019 Bilirubin Urine Negative NEGATIVE [facility] Work Phone: Color, UA YELLOW YELLOW [facility] [employer] Work Phone: Glucose, Ur Negative NEGATIVE [facility] Phone: Interpretation and review of laboratory results Abnormal [facility] [employer] [employer] Phone: Ketones Ql (U) Negative NEGATIVE [facility] Work Phone: Leukocyte esterase Test strip Ql (U) Negative NEGATIVE [facility] Phone: Nitrite, Urine Negative NEGATIVE [facility] Work Phone: pH, UA 8.0 [facility] [employer] Work Phone: Protein (U) [Mass/Vol] Negative NEGATIVE [facility] [employer] [employer] Phone: Specific [place], UA 1.010 [facility] [employer] Work Phone: Turbidity UA CLOUDY Abnormal CLEAR [facility] Phone: Urinalysis Comments NOT REPORTED [facility] [employer] Work Phone: Urine Hgb Negative NEGATIVE [facility] [employer] [employer] Phone: Urobilinogen, Urine Normal Normal [facility] [employer] Phone: Vital Signs Date Time Vital Sign Value Performing Clinician Josy obnd 10-28-2019 19:57-0500 BP Diastolic 107 mm[Hg] Wilver Nunez [facility] [employer] Work Phone: 10-28-2019 19:57-0500 BP Systolic 176 mm[Hg] Wilver Anna [employer] Work Phone: 10-28-2019 18:51-0500 Pulse Oximetry 100 % Wilver Nunez [employer] Work Phone: 10-28-2019 18:01-0500 Body Temperature 98.2 [degF] Wilver Nunez [employer] Work Phone: 10-28-2019 18:01-0500 Pulse (Heart Rate) 76 /min Wilver Nunez [employer] Work Phone: 10-28-2019 18:01-0500 Respiratory Rate 16 /min Wilver Nunez [employer] Work Phone: Encounters Encounter Date Encounter Type Care Provider Facility Start: 10-18-2024 End: 10-18-2024 Patient encounter procedure Fausto R NILL [facility] Start: 10-12-2024 End: 10-12-2024 ambulatory Fausto R NILL Facility:[facility] Start: 10-12-2024 End: 10-12-2024 Patient encounter procedure Fausto R NILL [facility] Start: 09-27-2024 End: 09-27-2024 ambulatory Fausto R NILL [place] [place] Start: 09-27-2024 End: 09-27-2024 Lab Drop off Fausto R NILL [facility] Start: 09-27-2024 End: 09-27-2024 ambulatory Fausto R NILL Facility:[facility] Start: 09-27-2024 End: 09-27-2024 Patient encounter procedure Fausto R NILL [facility] Start: 08-31-2024 End: 08-31-2024 ambulatory Fausto R NILL Facility:[facility] Start: 08-09-2024 ambulatory Fausto PEEWEEL Facility:[facility] Start: 11-23-2022 Encounter for genera l adult medical examination without abnormal findings DR ANOOP CHINO . [facility] Start: 11-18-2022 End: 11-19-[address] ANOOP CHINO . Facility:[facility] Start: 11-18-2022 End: 11-19-2022 Encounter for general adult medical examination without abnormal findings DR ANOOP CHINO . Facility:[facility] Start: 08-25-2022 End: 08-26-2022 ambulatory [facility] Start: 06-06-2022 End: 06-06-2022 Emergency department patient visit [facility] Start: 04-14-2022 End: 04-15-2022 ambulatory [facility] Start: 04-14-2022 End: 04-14-2022 Subsequent hospital visit by physician Wilver Barnes CNP Work Phone: [facility] Start: 03-06-2022 End: 03-07-[address] ANOOP CHINO . Facility:[facility] Start: 01-16-2021 End: 01-16-2021 Subsequent hospital visit by physician Wilver Barnes CNP Work Phone: [facility] Start: 11-14-2019 End: 11-14-2019 Subsequent hospital visit by physician Wilver [facility] Start: 11-01-2019 End: 11-01-2019 Subsequent hospital visit by physician Wilver [facility] Start: 10-28-2019 End: 10-28-2019 Emergency department patient visit [facility] ED Comment on above: Hypertension, unspec ified type (Primary Dx) Start: 10-28-2019 End: 10-28-2019 Subsequent hospital visit by physician Wilver [facility] Procedures Date Procedure Procedure Detail Performing Clinician Start: 09-27-2024 Excision of lipoma Eusebio BLAIR Start: 09-27-2024 Pigmented nevus Fausto BLAIR Start: 01-16-2021 Antibody hiv-1&hiv-2 single result Wilver Nunez [employer] OPERATOR - ASSISTANT PROFESSOR OF PHYSICS Work Phone: Start: 01-16-2021 Comprehensive metabo lic panel Wilver Nunez [employer] CONTR[employer] OPERATOR - ASSISTANT PROFESSOR OF PHYSICS Work Phone: Start: 01-16-2021 IMMATURE PLATELET FRACTION Wilver Nunez [employer] CONTROL OPERATOR - ASSISTANT PROFESSOR OF PHYSICS Work Phone: Start: 11-14-2019 Basic metabolic pane l calcium total Wilver Nnuez Work Phone: Start: 10-28-2019 Urinalysis microscopic only Beryl Irene Work Phone: Start: 10-28-2019 Urine test visual color cmprsn meths Beryl Irene Work Phone: Start: 10-28-2019 Urnls dip stick/tabl et rgnt auto w/o microscopy Beryl Irene Work Phone: Start: 10-28-2019 Assay of troponin quantitative Beryl [employer] Work Phone: Start: 10-28-2019 Basic metabolic pane l calcium total Beryl Irene Work Phone: Start: 10-28-2019 Blood count complete automated Beryl Irene Work Phone: Start: 10-28-2019 Ecg routine ecg w/le ast 12 lds w/i&r Beryl Irene Work Phone: Start: 10-28-2019 Acute hepatitis panel E laura Nunez Work Phone: Start: 10-28-2019 Antibody hiv-1&hiv-2 single result Wilver Nunez Work Phone: Start: 10-28-2019 Blood count complete automated Wilver Nunez Work Phone: Start: 10-28-2019 Comprehensive metabo lic panel Wilver Nunez Work Phone: Start: 10-28-2019 Gonadotropin chorion ic qualitative Wilver Nunez Work Phone: Cholecystectomy Fausto NILL Laparoscopy Fausto BLAIR Vaginal hysterectomy Fausto BLAIR Plan of Treatment Date Care Activity Detail Author Start: 05-22-2022 Influenza vaccination Flu vaccine (# 1) [facility] Start: 05-22-2021 Influenza vaccination Flu vacc ine (Season Ended) [facility] Phone: Start: 05-22-2019 Influenza vaccination Flu vaccine (# 1) [facility] Phone: Start: 2008 DTaP/Tdap/Td vaccine (1 - Tdap) DTaP/Tdap/Td vaccine (1 - Tdap) [employer] Start: 2005 COVID-19 Vaccine (1) COVID-19 Vaccin e (1) [facility] Phone: Start: 1989 COVID-19 Vaccine (#1) COVID-19 Vacci ne (#1) [facility] EKG 12 Lead EKG 12 Lead ECG STAT 10/28/2019 6:22 PM EST [facility] Phone: End: 11-01-2019 Hepatitis C RNA, quantitative, PCR Hepatitis C RNA, quantitative, PCR Lab Routine Once for 1 Occurrences starting 11/01/2019 until 11/01/2019 [facility] Phone: Comment on above: Once for 1 Occurrenc es starting 11/01/2019 until 11/01/2019 Hepatitis C RNA, quantitative, PCR [facility] Phone: End: 11-14-2019 Hepatitis C RNA, quantitative, PCR Hepatitis C RNA, quantitative, PCR Lab Routine Once for 1 Occurrences starting 11/14/2019 until 11/14/2019 [facility] Comment on above: Once for 1 Occurrenc es starting 11/14/2019 until 11/14/2019 Payers Date Payer Category Payer Medicaid [facility] [place] [facility] [place] [employer] xxxxxxxxxxxx 2016-Present [phone] [address] [address] [place] [address] xxxxxxxxxxxx [id number] 1989 Unknown [id number] 1989 Unknown [id number] 1989 Unknown [id number] 1989 Unknown [id number] 1989 Unknown [id number] 1989 Unknown [id number] 1989 Unknown [id number] 1989 Unknown [id number] 1989 Unknown [id number] 1989 Unknown [id number] 1959 Medicaid [id number] Social History Date Type Detail Facility Tobacco smoking stat [facility] Center Unknown if ever smoked [facility] Phone: Start: 1990 Sex Assigned At Not on file [employer] Phone: Tobacco smoking stat [facility] Tobacco smoking consumption unknown JOSEPHINE NIELSON [employer] Phone: Start: 09-27-2024 End: 10-18-2024 Tobacco smoking status Heavy tobacco smoker (finding) [facility] [place] Sex Assigned At Female [facility] Functional Status Date Assessment Result Facility 10-18-2024 Functional Status N/A [facility] [place] 09-27-2024 Functional Status N/A [facility] [place] Clinical Note 08-31-2024 Note Date & Type Note Facility 08-31-2024 Note General Surgery Offi ce/Clinic Note Chief Complaint consultation for nevi HPI Staff 34 year old female presents on consultation from Dr. Chino for nevi. Reports skin lesion to left preauricular area and right hip skin tag. Review of Systems PHQ Score Initial Depression Screen Score: 0 SCORE Physical Exam Vitals & Measurements HR: 72(Peripheral) RR: 16 BP: 128/86 HT: 68 in HT: 172.72 cm WT: 94.7 kg WT: 208.778 lb BMI: 31.74 HEENT: normal conjunctiva, sclera clear, no scleral icterus, EOM intact, PERRLA, oral mucosa moist without lesions. Neck: trachea midline, no mass, symmetric, no thyromegaly or nodules, no adenopathy Respiratory: lungs CTA, respirations non labored. Cardiovascular: regular rate and rhythm, no murmur, no pedal edema or varicosities. Gastrointestinal: soft, non distended, no tenderness, no masses, no palpable hernias, diastasis recti no, no hepatosplenomegaly; normal bs Lymphatic: no cervical adenopathy, no supraclavicular adenopathy Musculoskeletal: normal gait, digits and nails without infection, nodes, cyanosis, clubbing. Skin: no rashes, left preauricular area with 5 mm raised, round lesion, no ulceration; right hip with 5 mm pedunculated skin tag; no ulcers, no subcutaneous nodules, induration. Psychiatric/Neuro: oriented to time, place, person, judgement normal, affect appropriate for age, insight intact, no focal deficits. Tests: , review of old records completed , Discussed surgical options, risks, and possible complications with patient. Assessment/Plan 1. Neoplasm of uncertain behavior of skin of face (D48.5: Neoplasm of uncertain behavior of skin) plan excisional biopsy under local anesthesia in the office, for definitive diagnosis and treatment; informed consent obtained. 2. Skin tag (L91.8: Other hypertrophic disorders of the skin) see # 1 Follow-up No qualifying data available Problem List/Past Medical History Ongoing BMI 31.0-31.9,adult Chronic low back pain History of narcotic addiction Hypertension Irritable bowel Neoplasm of uncertain behavior of skin of face Obesity due to excess calories Skin tag Skin tag of perianal region Historical No qualifying data Procedure/Surgical History Cholecystectomy, Laparoscopy, VH - Vaginal hysterectomy. Medications cloNIDine 0.2 mg Tab, 0.2 mg= 1 tab(s), Oral, TID gabapentin 300 mg Cap, 600 mg= 2 cap(s), Oral, BID lisinopril 10 mg Tab, 10 mg= 1 tab(s), Oral, Daily Allergies penicillin (Patient reported problems) Social History Alcohol Never., 08/30/2024 Substance Abuse Past. Marijuana. Daily. Previous treatment: None., 08/30/2024 Tobacco 10 or more cigarettes (1/2 pack or more)/day in last 30 days Tobacco Use:. Current vaping or e-cigarette use Smokeless Tobacco Use:. Cigarettes, Vaping, 0.75 per day. Started age 15.0 Years. Yes, 08/31/2024 Family History COPD: Mother. Diabetes mellitus type 2: Father. Heart disease: Mother. Hypertension: Mother. Primary malignant neoplasm of lung: Mother. [facility] Comment on above: Result Comment: Elec tronically Signed By: Fausto BLAIR MD\.br\Date and Time Signed: 08/31/24 15:10 EST Evaluation + Plan note Note Date & Type Note Facility Evaluation + Plan note Future Appointments Appointment Date:10/05/2024 02:00:00 PM Scheduled Provider:Fausto BLAIR MD Location:[facility] Appointment Type:[address] General [facility] [place] Hospital course Narrative Note Date & Type Note Facility Hospital course Narrative No data available for this section [facility] [place] [facility] Discharge instructions Note Date & Type Note Facility Hospital Discharge instructions No data available for this section [facility] [place] Progress note Note Date & Type Note Facility Progress note No data available for this section [facility] [place] Discharge Instructions * Instructions* Beryl Bonilla PA-C - 10/28/2019 Follow-up with primary care. See the provider at the facility where you are tomorrow. We are changing your blood pressure medication. We would like you to stop taking the clonidine and start taking Norvasc. * Attachments The following attachments cannot be sent through Care Everywhere. * Hypertension: General Info (Citizen Of [place]) documented in this encounter Assessments Diagnosis Hypertension, unspecified type- Primary Advance Directives Documents on File Type Date Recorded Patient Engineering Systems Analyst Expl anation Advance Directives and Living Will Power of Corpsman Documents on File Type Date Recorded Patient Engineering Systems Analyst Expl anation ACP-Advance Directive ACP-Power of Corpsman Summary Purpose Family History No Family History Records FoundNo Family History Records Found No data available for this section No data available for this section No Family History Records FoundNo Family History Records Found No data available for this section No Family History Records Found No data available for this section Additional Source Comments Reason for Visit (unrecogniz ed section and content) Reason Comments Hypertension Care Teams (unrecognized sec tion and content) Personnel Name: Anoop Chino MD Address: Address: [address] [place] [address]- Insurance Examining Clerk Relationship Specialty Start Date End Date Wilver Nunez APRN - CNP PCP - General 07/29/17 INFORMATION SOURCE (unrecogn ized section and content) DATE CREATED AUTHOR 08/27/2022 [facility] DATE CREATED AUTHOR AUTHOR'S ORGANIZ ATION 11/25/2022 [facility] DATE CREATED AUTHOR AUTHOR'S ORGANIZ ATION 10/06/2024 [facility] DATE CREATED AUTHOR AUTHOR'S ORGANIZ ATION 10/14/2024 [facility] FOR RECORDS PERTAINING TO PATIENTS WHO ARE OR HAVE BEEN ENROLLED IN A CHEMICAL DEPENDENCY/SUBSTANCEABUSE PROGRAM, SOME INFORMATION MAY BE OMITTED. This clinical summary was aggregated from multiple sources. Caution should be exercised in using it in the provision of clinical care. This summary normalizes information from multiple sources, and as a consequence, information in this document may materially change the coding, format and clinical context of patient data. In addition, data may be omitted in some cases. CLINICAL DECISIONS SHOULD BE BASED ON THE PRIMARY CLINICAL RECORDS. [employer] [facility]. provides no warranty or guarantee of the accuracy or completeness of information in this document.
--- OUTSIDE RECORDS SUMMARY | 2025-06-16 06:41 | XMS_ITS | Patient Health Record ---
Author Organization [facility] [place] Address [address] [place] [address] Care Team Providers Care Manager Distribution Name Role Phone David Chino Primary Care Provider Allergies Allergen (clinical drug ingredient) Drug/Non Drug Allergy documented on EMR Reaction Allergy Type Onset Date Status Penicillin Unknown Drug Allergy Active Reason For Referral Diagnosis 1 Nevus (D22.9) Referral Organization [facility] Referring Provider First Name David Referring Provider Last Name Lulú Referring Provider Speciality Family Med alexandrea Referred Provider Fausto Gay Referred Provider Specialty General Surg remedios Referral Priority Routine Medications Medication SIG (Take, Route, Fr equency, Duration) Notes Start Date End Date Status traZODone HCl 150 MG 1 tablet at bedtime as needed Orally Once a day; Duration: 30 days 05/31/2025 Active cloNIDine HCl 0.2 MG take 1 tablet by mo uth three times a day Orally tid; Duration: 30 days Active KlonoPIN 0.5 MG 1 tablet Orally bid; Duration: 7 days As needed F41.9 06/08/2025 Active Lisinopril 10 MG take 1 tablet by wicho th once daily Orally Once a day; Duration: 30 days Active Social History Tobacco Use: Social History Observation Description Date Details (start date - stop date) Current Smoker 09/21/2001 - NA Tobacco Use/Smoking Question Answer Notes Patient is a current smoker When did you start smoking? 09/21/2001 How often do you smoke cigarettes? every day How many cigarettes a day do you smoke? 6-10 How soon after you wake up do you smoke your fir st cigarette? within 5 minutes Are you interested in quitting? Ready to quit Alcohol Screen (Audit-C) Question Answer Notes Did you have a drink contain ing alcohol in the past year? Yes How often did you have 6 or more drinks on one occasion in the past year? Never (0 point) How many drinks did you have on a typical day when you were drinking in the past year? 1 or 2 drinks (0 point) How often did you have a dri nk containing alcohol in the past year? Less than monthly (1 point) Points 1 Interpretation Negative AUDIT-C (Standard) Question Answer Notes Did you have a drink contain ing alcohol in the past year? Yes How often did you have six o r more drinks on one occasion in the past year? Never (0 point) How many drinks did you have on a typical day when you were drinking in the past year? 1 or 2 drinks (0 point) How often did you have a dri nk containing alcohol in the past year? Monthly or less (1 point) Points 1 Interpretation Negative Problems Problem Type SNOMED Code ICD Code Onset Dates Problem Status W/U Status Risk Notes Problem Low back pain (569659952) Low back pain (M54.5) Active confirmed Problem Hypertension (63358087) Hypertension (I10) Active confirmed Problem Anxiety (18371181) Anxiety (F41.9) Active confirmed Problem Insomnia (346742011) Insomnia (G47.00) Active confirmed Problem Gastritis (6018775) Gastritis (K29.70) Active confirmed Problem Well adult (104913008) Well adult (Z00.00) Active confirmed Problem Nevus (7055507132) Nevus (D22.9) Active confirmed Problem Opioid abuse (0747890) Narcotic abuse (F11.10) Active confirmed Problem Ingrowing nail (263056003) Ingrown left big toenail (L60.0) Active confirmed Problem Irritable bowel (74938129) Irritable bowel (K58.9) Active confirmed Problem Disorder of sacrum (74380114) Low back derangement syndrome (M53.86) Active confirmed Problem Low back pain (finding) (209718629) Low back pain at multiple sites (M54.50) Active confirmed Vital Signs Blood pressure diastolic 92 mm Hg 05/31/2025 Height 68 in 05/31/2025 Blood pressure systolic 126 mm Hg 05/31/2025 Weight 197.2 lbs 05/31/2025 BMI 29.98 kg/m2 05/31/2025 Encounters Encounter Location Date Provider Diagnosis [facility] [address] [place] [address] 10/07/2024 David Hoy Hypertension I10 [facility] [address] [place] [address] 06/08/2025 David Hoy Insomnia G47.00 [facility] [address] [place] [address] 08/09/2024 David Hoy Hypertension I10 ; L ow back pain at multiple sites M54.50 ; Ingrown left big toenail L60.0 and Nevus D22.9 [facility] [address] [place] [address] 05/31/2025 David Hoy Anxiety F41.9 and Insomnia G47.00 Assessments Encounter Date Diagnosis (ICD Code) Assessment Notes Treatment Notes Treatment Clinical Notes Section Notes 08/09/2024 Hypertension (ICD-10 - I10) 08/09/2024 Low back pain at multiple sites (ICD-10 - M54.50) 05/31/2025 Anxiety (ICD-10 - F41.9) 05/31/2025 Insomnia (ICD-10 - G47.00) 10/07/2024 Hypertension (ICD-10 - I10) 06/08/2025 Insomnia (ICD-10 - G47.00) 08/09/2024 Ingrown left big toenail (ICD-10 - L60.0) 08/09/2024 Nevus (ICD-10 - D22.9) Plan Of Treatment Pending Test Test Name Order Date CMP (COMPLETE METABOLIC PANEL) 3 CMP (COMPLETE METABOLIC PANEL) 4 CMP (COMPLETE METABOLIC PANEL) 4 HEMOGLOBIN A1C (GLYCO) 07/02/2023 HEMOGLOBIN A1C (GLYCO) 08/09/2024 HEMOGLOBIN A1C (GLYCO) 12/01/2023 IRON, TOTAL 12/01/2023 IRON, TOTAL 07/02/2023 LIPID PANEL (CHOL/TRIG/HDL/LDL) 08/09/20 24 LIPID PANEL (CHOL/TRIG/HDL/LDL) 07/02/20 23 LIPID PANEL (CHOL/TRIG/HDL/LDL) 12/01/19 24 CBC WITH DIFF 12/01/2023 CBC WITH DIFF 07/02/2023 CBC WITH DIFF 08/09/2024 Insulin Level 07/02/2023 Insulin Level 12/01/2023 THYROID PANEL (T4/TSH/FREE T3) 4 THYROID PANEL (T4/TSH/FREE T3) 3 THYROID PANEL (T4/TSH/FREE T3) 4 Medical (General) History Medical History History ICD Code Collapsed vertebra, initial encounter M4 8.50XA Narcotic abuse F11.10 Hypertension I10 Chest pain R07.9 Low back pain M54.5 Surgical History Surgery Date(Month/Year) Gallbadder exp lap Hysterectomy oral surgery Hospitalization History Reason Date(Month/Year) HTN
--- OUTSIDE RECORDS SUMMARY | 2025-06-16 06:41 | XMS_ITS | Clinical Summary ---
Author Organization [facility] Address [address] [place] [address] Care Team Providers Care Heat Regulator Name Role Phone Unavailable Primary Care Provider Unavailabl e Social History Tobacco Use Types Packs/Day Years Used Date Smoking Tobacco: Never Assessed Comments Unknown Sex and Gender Information Value Date Recorded Sex Assigned at Not on file Legal Sex Female 12:18 AM EDT Gender Identity Not on file Sexual Orientation Not on file Plan of Treatment Not on file
--- OUTSIDE RECORDS SUMMARY | 2025-06-16 06:41 | XMS_ITS | Clinical Summary ---
Author Organization [employer] Address [id number] [address] [place] [address] Care Team Providers Care Immigration Guard Name Role Phone No Pcp, No Pcp Primary Care Provider Unavailabl e Allergies Active Allergy Reactions Criticality Noted Date Comments Penicillins 03/03/2018 Medications No known medications Social History Tobacco Use Types Packs/Day Years Used Date Smoking Tobacco: Every Day Cigarettes Smokeless Tobacco: Never Alcohol Use Standard Drinks/Week Comments No 0 (1 standard drink = 0.6 oz pur e alcohol) Childcare Answer Date Recorded Childcare Unknown 03/02/2019 Employment Answer Date Recorded Employment Unknown 03/02/2019 Purpose - Life Answer Date Recorded Purpose and direction in life Unknown Comments No Sex and Gender Information Value Date Recorded Sex Assigned at Not on file Legal Sex Female 11:40 AM EDT Gender Identity Not on file Sexual Orientation Not on file Last Filed Vital Signs Vital Sign Reading Time Taken Comments Blood Pressure 171/124 09/12/2020 8:54 PM EST Pulse 128 09/12/2020 8:54 PM EST Temperature 37 C (98.6 F) 10/24/2019 6:29 PM EST Respiratory Rate 18 09/12/2020 8:54 PM EST Oxygen Saturation 100% 09/12/2020 8:54 PM EST Inhaled Oxygen Concentration - - Weight 111.1 kg (245 lb) 09/12/2020 8:54 PM EST Height 170.2 cm (5' 7 ) 09/12/2020 8:54 PM EST Body Mass Index 38.37 09/12/2020 8:54 PM EST Plan of Treatment Health Maintenance Due Date Last Done Comments Depression Screening 2001 Tobacco Screening 2001 Adult BMI Screening 2007 DTaP,Tdap and Td Vaccines (1 - Tdap) 2008 Pap Smear 2010 Influenza Vaccine 05/22/2025 Medical Devices Not on file Insurance [employer] MEDICA[employer] [facility] [place] [address] [place] [address] Care Teams Immigration Guard Relationship Specialty Start Date End Date No Pcp, [place] [address] PCP - General Family Medicine 03/03/18
--- NOTE | 2025-06-16 06:46 | CT_ITS ---
The [address] [address] Patient Name: BRADLEY STOCKTON MRN: [id number] date: 1990 Sex: F Assigned Patient Location: ED.MAIN Current Patient Location: ED.MAIN Accession/Order Number: [id number] Exam Date: 06/16/2025 07:18 Report Date: 06/16/2025 07:50 At the request of: PARRIS NICOLAS MD Procedure: CT abdomen pelvis w con CT abdomen pelvis w con 06/16/2025 7:26 AM SIGNS AND SYMPTOMS: RLQ pain \S.br\ TECHNIQUE: Multidetector ct axial images of the abdomen and pelvis were obtained without IV contrast. Multiplanar reformats were performed and reviewed to further define anatomy and possible pathology. CT was performed with one or more of the following dose reduction techniques: Automated exposure control, adjustment of the mA and/or kV according to patient size, or use of iterative reconstruction technique. COMPARISON: 03/06/2025 2. FINDINGS: Lower Chest: Within normal limits. ABDOMEN: Liver: Within normal limits. Bile Ducts: Normal caliber. Gallbladder: Previously removed Pancreas: Within normal limits. Spleen: Within normal limits. Adrenals: Within normal limits. Kidneys: Within normal limits. Pelvis: Reproductive Organs: No pelvic masses. Ureters: Within normal limits. Bladder: Within normal limits. Bowel: An appendicolith is noted at the stump of the appendix. The stump of the appendix is dilated measuring 1.6 cm in greatest dimension with periappendiceal fat stranding consistent with acute appendicitis. Mesenteric Lymph Nodes: No enlarged mesenteric lymph nodes. Peritoneum: No ascites or free air, no fluid collection. Vessels: Atherosclerotic changes are noted in the abdominal aorta and its branches. Retroperitoneum: Within normal limits. Abdominal Wall: Within normal limits. Bones: There is a remote compression deformity of the L1 vertebral body. CT/CT abdomen pelvis w con IMPRESSION: The stump of the appendix is dilated measuring 1.6 cm in greatest dimension with periappendiceal fat stranding consistent with acute appendicitis. Impression dictated by: El Koo M.D. 06/16/2025 7:50 AM Dictation Location: [place] [address] Electronically authenticated by: [id number] Y Date: 06/16/2025 07:50
[2025-06-16 06:55] LABS: Hematocrit 44.4 % (36.0-48.0); Hemoglobin 15.1 g/dL (12.0-16.0); Immature Granulocytes Abs Auto 0.06 10^3/uL (0.00-0.03); Immature Granulocytes Pct Auto 0.7 % (0.0-0.5); Lymphocytes Absolute Auto 1.9 10^3/uL (1.2-3.8); Mean Corpuscular HGB Conc 34.0 g/dL (29.9-35.2); Mean Corpuscular Hemoglobin 30.6 pg (26.7-34.0); Mean Corpuscular Volume 89.9 fL (81.0-99.0); Platelet Count 234 10^3/uL (150-450); Red Blood Count 4.94 10^6/uL (4.20-5.40); White Blood Count 8.2 10^3/uL (4.0-11.0)
[2025-06-16 06:56] LABS: Glucose Urine UA NEGATIVE (NEGATIVE)
--- OUTSIDE RECORDS SUMMARY | 2025-06-16 07:00 | XMS_ITS | CCD ---
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 Risk Management Internship: Nate Blas MD #### PHEP, HIVCMB #### [address] [place] [address] Risk Management Internship: Jimmy Lombardo MD Hep B Surf Ag Non-Reactive Normal NR [facility] Comment on above: Performed By: #### C P, HCG, CBC #### [address] [place], [place] [phone] Risk Management Internship: Nate Blas MD #### PHEP, HIVCMB #### [facility] [address] [place] [address] Risk Management Internship: Jimmy Lombardo MD Hep C Ab Reactive Abnormal NR [facility] Comment on above: Result Comment: [...] By: #### C P, HCG, CBC #### [address] [place], [place] [phone] Risk Management Internship: Nate Blas MD #### PHELupillo, HIVCMB #### [address] [place], [place] [phone] Risk Management Internship: Jimmy Lombardo MD CBC with Diffon 06-06-2022 Abs. Basophil 0.03 k/uL Normal 0.00-0.20 [facility] Comment on above: Performed By: #### C P, CDP #### [facility] [address] [place] [address] [place] [address] Risk Management Internship: Nate Blas MD Abs.Imm.Granulocyte 0.03 k/uL Normal 0.00-0.30 [facility] Comment on above: Performed By: #### C P, CDP #### [address] [place], [place] [phone] Risk Management Internship: Nate Blas MD Abs.Neutrophil (Seg) 6.37 k/uL Normal 1.50-8.10 [facility] Comment on above: Performed By: #### C P, CDP #### [address] [place] [address] Risk Management Internship: Nate Blas MD Basophils/100 WBC (Bld) 0 % Normal 0-2 [facility] Comment on above: Performed By: #### C P, CDP #### [address] [place], [place] [address] Risk Management Internship: Nate Blas MD Eosinophils (Bld) [#/Vol] 0.17 10*3/uL Normal 0.00-0.44 [facility] Comment on above: Performed By: #### C P, CDP #### [address] [place] [phone] Risk Management Internship: Nate Blas MD Eosinophils/100 WBC (Bld) 2 % Normal 1-4 [facility] Comment on above: Performed By: #### C P, CDP #### [address] [place] [phone] Risk Management Internship: Nate Blas MD Erythrocyte distribution width (RBC) [Ratio] 12.8 % Normal 11.8-14.4 [facility] Comment on above: Performed By: #### C P, CDP #### [address] [place] [address] Risk Management Internship: Nate Blas MD Hematocrit (Bld) [Volume fraction] 46.2 % Normal 36.3-47.1 [facility] Comment on above: Performed By: #### C P, CDP #### [address] [place] [address] Risk Management Internship: Nate Blas MD Hemoglobin (Bld) [Mass/Vol] 14.5 g/dL Normal 11.9-15.1 [facility] Comment on above: Performed By: #### C P, CDP #### [facility] [address] [place], [place] [phone] Risk Management Internship: Nate Blas MD Immature granulocytes/100 WBC (Bld) 0 % Normal 0 [facility] Comment on above: Performed By: #### C P, CDP #### [address] [place], [facility] [address] Risk Management Internship: Nate Blas MD Lymphocytes (Bld) [#/Vol] 1.22 10*3/uL Normal 1.10-3.70 [facility] Comment on above: Performed By: #### C P, CDP #### [address] [place], [place] 6819883 Risk Management Internship: Nate Blas MD Lymphocytes/100 WBC (Bld) 14 % Low 24-43 [facility] Comment on above: Performed By: #### C P, CDP #### [address] [place], [facility] [address] Risk Management Internship: Nate Blas MD MCH (RBC) [Entitic mass] 27.7 pg Normal 25.2-33.5 [facility] Comment on above: Performed By: #### C P, CDP #### [address] [place], [facility] [address] Risk Management Internship: Nate Blas MD MCHC (RBC) [Mass/Vol] 31.4 g/dL Normal 28.4-34.8 [facility] Comment on above: Performed By: #### C P, CDP #### [address] [place], [place] [phone] Risk Management Internship: Nate Blas MD MCV (RBC) [Entitic vol] 88.2 fL Normal 82.6-102.9 [facility] Comment on above: Performed By: #### C P, CDP #### [facility] [address] [place], [place] [phone] Risk Management Internship: Nate Blas MD Monocytes (Bld) [#/Vol] 1.01 10*3/uL Normal 0.10-1.20 [facility] Comment on above: Performed By: #### C P, CDP #### [facility] [address] [place], [place] [phone] Risk Management Internship: Nate Blas MD Monocytes/100 WBC (Bld) 11 % Normal 3-12 [facility] Comment on above: Performed By: #### C P, CDP #### [address] [place], [place] [address] Risk Management Internship: Nate Blas MD Neutrophil (Seg) 73 % High 36-65 [facility] Comment on above: Performed By: #### C P, CDP #### [address] [place], [facility] [address] Risk Management Internship: Nate Blas MD NRBC Automated 0.0 per 100 WBC Normal 0.0 [facility] Comment on above: Performed By: #### C P, CDP #### [address] [place], [facility] [address] Risk Management Internship: Nate Blas MD Platelet mean volume (Bld) [Entitic vol] 9.9 fL Normal 8.1-13.5 [facility] Comment on above: Performed By: #### C P, CDP #### [address] [place], [facility] [address] Risk Management Internship: Nate Blas MD Platelets (Bld) [#/Vol] 205 10*3/uL Normal 138-453 [facility] Comment on above: Performed By: #### C P, CDP #### [address] [place], [place] [phone] Risk Management Internship: Nate Blas MD RBC (Bld) [#/Vol] 5.24 10*6/uL High 3.95-5.11 [facility] Comment on above: Performed By: #### C P, CDP #### [facility] [address] [place] [address] Risk Management Internship: Nate Blas MD WBC (Bld) [#/Vol] 8.8 10*3/uL Normal 3.5-11.3 [facility] Comment on above: Performed By: #### C P, CDP #### [facility] [address] [place] [address] Risk Management Internship: Nate Blas MD CT ABDOMEN PELVIS WO [...] Richie Flores MD 06/06/22 Final result Normal [facility] Comp Metabolic Profon 2021 (cont.) Normal [facility] Comment on above: Result Comment: Aver age GFR for 30-39 years old: 107 mL/min/1.73sq m Chronic Kidney Disease: <60 mL/min/1.73sq m Kidney failure: <15 mL/min/1.73sq m eGFR calculated using average adult body mass. Additional eGFR calculator available at: http://www.ENDOGENX/multiple_crcl_2012.htm Performed By: #### C P, CDP #### [facility] [address] [place] [address] [place], [place] [phone] Risk Management Internship: Nate Blas MD Albumin [Mass/Vol] 4.2 g/dL Normal 3.5-5.2 [facility] Comment on above: Performed By: #### C P, CDP #### [facility] [address] [place] [address] [place] [address] Risk Management Internship: Nate Blas MD Albumin/Glob Ratio 1.1 Normal 1.0-2.5 [facility] Comment on above: Performed By: #### C P, CDP #### [facility] [address] [place] [address] [place], [place] [phone] Risk Management Internship: Nate Blas MD Alkaline Phos 119 U/L High 35-104 [facility] Comment on above: Performed By: #### C P, CDP #### [facility] [address] [place] [address] Risk Management Internship: Nate Blas MD ALT [Catalytic activity/Vol] 16 U/L Normal 5-33 [facility] Comment on above: Performed By: #### C P, CDP #### [facility] [address] [place], [place] [phone] Risk Management Internship: Nate Blas MD Anion gap [Moles/Vol] 11 mmol/L Normal 9-17 [facility] Comment on above: Performed By: #### C P, CDP #### [facility] [address] [place], [place] [phone] Risk Management Internship: Nate Blas MD AST [Catalytic activity/Vol] 17 U/L Normal <32 [facility] Comment on above: Performed By: #### C P, CDP #### [facility] [address] [place], [place] [phone] Risk Management Internship: Nate Blas MD Bilirubin [Mass/Vol] 0.5 mg/dL Normal 0.3-1.2 [facility] Comment on above: Performed By: #### C P, CDP #### [facility] [address] [place], [place] 2242083 Risk Management Internship: Nate Blas MD BUN/CRE Ratio 25 High 9-20 [facility] Comment on above: Performed By: #### C P, CDP #### [facility] [address] [place], [place] [phone] Risk Management Internship: Nate Blas MD Calcium [Mass/Vol] 9.6 mg/dL Normal 8.6-10.4 [facility] Comment on above: Performed By: #### C P, CDP #### [facility] [address] [place], [place] 0007283 Risk Management Internship: Nate Blas MD Chloride [Moles/Vol] 99 mmol/L Normal 98-107 [facility] Comment on above: Performed By: #### C P, CDP #### [facility] [address] [place], [place] 7238783 Risk Management Internship: Nate Blas MD CO2 [Moles/Vol] 27 mmol/L Normal 20-31 [facility] Comment on above: Performed By: #### C P, CDP #### [facility] [address] [place], [place] 0930583 Risk Management Internship: Nate Blas MD Creatinine [Mass/Vol] 0.64 mg/dL Normal 0.50-0.90 [facility] Comment on above: Performed By: #### C P, CDP #### [facility] [address] [place], [place] [phone] Risk Management Internship: Nate Blas MD GFR, Amer >60 Normal >60 [facility] Comment on above: Performed By: #### C P, CDP #### [facility] [address] [place] [address] Risk Management Internship: Nate Blas MD GFR,non Amer >60 Normal >60 [facility] Comment on above: Performed By: #### C P, CDP #### [facility] [address] [place] [address] [place], [place] [phone] Risk Management Internship: Nate Blas MD Glucose [Mass/Vol] 114 mg/dL High 70-99 [facility] Comment on above: Performed By: #### C P, CDP #### [facility] [address] [place] [address] [place], [place] [phone] Risk Management Internship: Nate Blas MD Potassium [Moles/Vol] 4.0 mmol/L Normal 3.7-5.3 [facility] Comment on above: Performed By: #### C P, CDP #### [facility] [address] [place] [address] [place], [place] [phone] Risk Management Internship: Nate Blas MD Protein [Mass/Vol] 8.2 g/dL Normal 6.4-8.3 [facility] Comment on above: Performed By: #### C P, CDP #### [facility] [address] [place], [place] [phone] Risk Management Internship: Nate Blas MD Sodium [Moles/Vol] 137 mmol/L Normal 135-144 [facility] Comment on above: Performed By: #### C P, CDP #### [facility] [address] [place] [address] Risk Management Internship: Nate Blas MD Staging: Normal [facility] Comment on above: Result Comment: Stag e 1: Some kidney damage normal GFR Stage 2: Mild kidney damage GFR 60-89 Stage 3: Moderate kidney damage GFR 30-59 Stage 4: Severe kidney damage GFR 15-29 Stage 5: Severe kidney damage GFR <15 ESRD - chronic treatment by dialysis or transplant Performed By: #### C P, CDP #### [facility] [address] [place] [address] [place] [address] Risk Management Internship: Nate Blas MD Urea nitrogen [Mass/Vol] 16 mg/dL Normal 6-20 [facility] Comment on above: Performed By: #### C P, CDP #### [address] [place] [address] Risk Management Internship: Nate Blas MD Urinalysis w/ Microon 2021 Amorphous sediment LM Ql (Urine sed) 1+ Abnormal [facility] Comment on above: Performed By: #### U AMIC #### [address] [place] [address] Risk Management Internship: Nate Blas MD Bacteria 1+ Abnormal [facility] Comment on above: Performed By: #### U AMIC #### [facility] [address] [place] [address] [place] [address] Risk Management Internship: Nate Blas MD Bilirubin, SemiQt,Ur Negative Normal NEG [facility] Comment on above: Performed By: #### U AMIC #### [address] [place] [address] Risk Management Internship: Nate Blas MD Blood, Urine Negative Normal NEG [facility] Comment on above: Performed By: #### U AMIC #### [facility] [address] [place] [address] [place] [address] Risk Management Internship: Nate Blas MD Clarity (U) SLIGHTLY CLOUDY Abnormal CLEAR [facility] Comment on above: Performed By: #### U AMIC #### [facility] [address] [place], [place] [phone] Risk Management Internship: Nate Blas MD Color (U) Yellow Normal YEL [facility] Comment on above: Performed By: #### U AMIC #### [facility] [address] [place] [address] [place], [place] [phone] Risk Management Internship: Nate Blas MD Epithelial cells LM Ql (Urine sed) 2 TO 5 Normal 0-25 [facility] Comment on above: Performed By: #### U AMIC #### [facility] [address] [place] [address] [place] [place], [place] [phone] Risk Management Internship: Nate Blas MD Glucose Ql (U) Negative Normal NEG [facility] Comment on above: Performed By: #### U AMIC #### [facility] [address] [place] [address] [place], [place] 1689283 Risk Management Internship: Nate Blas MD Ketones Ql (U) Negative Normal NEG [facility] Comment on above: Performed By: #### U AMIC #### [facility] [address] [place] [address] [place], [place] 2695483 Risk Management Internship: Nate Blas MD Leukocyte esterase Test strip Ql (U) Negative Normal NEG [facility] Comment on above: Performed By: #### U AMIC #### [facility] [address] [place] [address] [place] [place], [place] [phone] Risk Management Internship: Nate Blas MD Mucus Strands 2+ Abnormal NONE [facility] Comment on above: Performed By: #### U AMIC #### [facility] [address] [place] [address] [place], [place] 6391483 Risk Management Internship: Nate Blas MD Nitrite,Ur Negative Normal NEG [facility] Comment on above: Performed By: #### U AMIC #### [facility] [address] [place] [address] [place] [address] Risk Management Internship: Nate Blas MD PH,Ur 6.0 Normal 5.0-9.0 [facility] Comment on above: Performed By: #### U AMIC #### [facility] [address] [place] [address] [place], [place] [phone] Risk Management Internship: Nate Blas MD Protein Ql (U) Negative Normal NEG [facility] Comment on above: Performed By: #### U AMIC #### [address] [place], [place] [phone] Risk Management Internship: Nate Blas MD Spec. Novi,Ur >1.030 High 1.010-1.020 [facility] Comment on above: Performed By: #### U AMIC #### [facility] [address] [place] [address] [place] [place], [place] 2639683 Risk Management Internship: Nate Blas MD Urine RBC's 0 TO 2 Normal 0-2 [facility] Comment on above: Performed By: #### U AMIC #### [address] [place], [place] 8719483 Risk Management Internship: Nate Blas MD Urine WBC's 0 TO 2 Normal 0-5 [facility] Comment on above: Performed By: #### U AMIC #### [facility] [address] [place] [address] [place], [place] [phone] Risk Management Internship: Nate Blas MD Urobilinogen,Ur Normal Normal NORM [facility] Comment on above: Performed By: #### U AMIC #### [address] [place], [place] [phone] Risk Management Internship: Nate Blas MD AMYLASEon 03-07-2022 Amylase [Catalytic activity/Vol] 27 U/L Normal 25-115 [facility] Comment on above: Performed By: #### L IPA, CMP, TEODORA #### [facility] [address] [place] [address] [address] Luisa Goins CBC AUTO DIFFon 03-07-2022 BASO # 0.1 103/ul Normal 0.0-0.1 [facility] Comment on above: Performed By: #### C BC #### [facility] [address] [place] [address] [address] Luisa Goins Basophils/100 WBC (Bld) 0.7 % Normal 0.2-2.0 [facility] Comment on above: Performed By: #### C BC #### [facility] [address] [place] [address] [address] Luisa Goins EO # 0.6 103/ul Normal 0.0-0.7 [facility] Comment on above: Performed By: #### C BC #### [facility] [address] [place] [address] Dr. Luisa Goins Eosinophils/100 WBC (Bld) 8.0 % Critically high 0.9-7.0 [facility] Comment on above: Performed By: #### C BC #### [facility] [address] [place] [address] Dr. Luisa Goins Erythrocyte distribution width (RBC) [Ratio] 14.1 % Normal 11.0-15.0 [facility] Comment on above: Performed By: #### C BC #### [facility] [address] [place] [address] Dr. Luisa Goins Hematocrit (Bld) [Volume fraction] 45.7 % Normal 36.0-48.0 [facility] Comment on above: Performed By: #### C BC #### [facility] [address] [address] [address] Luisa Goins Hemoglobin (Bld) [Mass/Vol] 15.0 g/dL Normal 12.0-16.0 [facility] Comment on above: Performed By: #### C BC #### [facility] [address] [address] [address] Luisa Goins IG # 0.01 10e3/ul Normal 0.00-0.03 [facility] Comment on above: Performed By: #### C BC #### [facility] [address] [place] [address] Dr. Luisa Goins IG % 0.1 % Normal 0.0-0.5 [facility] Comment on above: Performed By: #### C BC #### [facility] [address] [place] [address] Dr. Luisa Goins LYMPH # 2.3 103/ul Normal 1.2-3.8 [facility] Comment on above: Performed By: #### C BC #### [facility] [address] [place] [address] Dr. Luisa Goins Lymphocytes/100 WBC (Bld) 33.0 % Normal 20.5-60.0 [facility] Comment on above: Performed By: #### C BC #### [facility] [address] [place] [address] Dr. Luisa Goins MANUAL DIFF REQ NO Normal [facility] Comment on above: Performed By: #### C BC #### [facility] [address] [place] [address] Dr. Luisa Goins MCH (RBC) [Entitic mass] 28.1 pg Normal 26.7-34.0 [facility] Comment on above: Performed By: #### C BC #### [facility] [address] [place] [address] Dr. Luisa Goins MCHC (RBC) [Mass/Vol] 32.8 g/dL Normal 29.9-35.2 [facility] Comment on above: Performed By: #### C BC #### [facility] [address] [place] [address] Dr. Luisa Goins MCV (RBC) [Entitic vol] 85.7 fL Normal 81.0-99.0 [facility] Comment on above: Performed By: #### C BC #### [facility] [address] [place] [address] Dr. Luisa Goins MONO # 0.6 103/ul Normal 0.3-0.8 [facility] Comment on above: Performed By: #### C BC #### [facility] [address] [place] [address] Dr. Luisa Goins Monocytes/100 WBC (Bld) 8.5 % Normal 1.7-12.0 [facility] Comment on above: Performed By: #### C BC #### [facility] [address] [place] [address] Dr. Luisa Goins NEUT # 3.4 103/ul Normal 1.4-6.5 [facility] Comment on above: Performed By: #### C BC #### [facility] [address] [place] [address] Dr. Luisa Goins Neutrophils/100 WBC (Bld) 49.7 % Normal 43.0-75.0 [facility] Comment on above: Performed By: #### C BC #### [facility] [address] [place] [address] Dr. Luisa Goins Platelet mean volume (Bld) [Entitic vol] 10.6 fL Normal 9.5-13.5 [facility] Comment on above: Performed By: #### C BC #### [facility] [address] [place] [address] Dr. Luisa Goins PLT 166 103/ul Normal 150-450 [facility] Comment on above: Performed By: #### C BC #### [facility] [address] [place] [address] Dr. Luisa Goins RBC 5.33 106/ul Normal 4.20-5.40 [facility] Comment on above: Performed By: #### C BC #### [facility] [address] [place] [address] Dr. Luisa Goins WBC 6.8 103/ul Normal 4.0-11.0 [facility] Comment on above: Performed By: #### C BC #### [facility] [address] [place] [address] ABD/PELV W CONon [...] by: NISH FISHMAN Date: 2022-03-07 00:17 Normal [facility] LIPASEon 03-07-2022 Lipase [Catalytic activity/Vol] 31.0 U/L Critically low 73.0-393.0 [facility] Comment on above: Performed By: #### L IPA, CMP, TEODORA #### [facility] [address] [place] [address] Dr. Luisa Goins PROF 14(COMP METB)on 022 Albumin [Mass/Vol] 3.4 g/dL Normal 3.4-5.0 [facility] Comment on above: Performed By: #### L IPA, CMP, TEODORA #### [facility] [address] [address] [address] Luisa Goins Albumin/Globulin [Mass ratio] 0.8 {ratio} Normal [facility] Comment on above: Performed By: #### L IPA, CMP, TEODORA #### [facility] [address] [address] [address] Luisa Goins ALP [Catalytic activity/Vol] 91 U/L Normal 46-116 [facility] Comment on above: Performed By: #### L IPA, CMP, TEODORA #### [facility] [address] [address] [address] Luisa Goins ALT [Catalytic activity/Vol] 25 U/L Normal 14-59 [facility] Comment on above: Performed By: #### L IPA, CMP, TEODORA #### [facility] [address] [address] [address] Luisa Goins Anion gap [Moles/Vol] 18.8 mmol/L Normal [facility] Comment on above: Performed By: #### L IPA, CMP, TEODORA #### [facility] [address] [address] [address] Luisa Goins AST [Catalytic activity/Vol] U/L Critically low 15-37 [facility] Comment on above: Performed By: #### L IPA, CMP, TEODORA #### [facility] [address] [address] [address] Luisa Goins Bilirubin [Mass/Vol] 0.3 mg/dL Normal 0.2-1.0 [facility] Comment on above: Performed By: #### L IPA, CMP, TEODORA #### [facility] [address] [address] [address] Luisa Goins Calcium [Mass/Vol] 8.6 mg/dL Normal 8.5-10.1 [facility] Comment on above: Performed By: #### L IPA, CMP, TEODORA #### [facility] [address] [address] [address] Luisa Goins Chloride [Moles/Vol] 104 mmol/L Normal 98-107 [facility] Comment on above: Performed By: #### L IPA, CMP, TEODORA #### [facility] [address] [address] [address] Luisa Goins CO2 [Moles/Vol] 21.0 mmol/L Normal 21.0-32.0 [facility] Comment on above: Performed By: #### L IPA, CMP, TEODORA #### [facility] [address] [address] [address] Luisa Goins Creatinine [Mass/Vol] 0.91 mg/dL Normal 0.55-1.02 [facility] Comment on above: Performed By: #### L IPA CMP, TEODORA #### [facility] [address] [place] [address] Dr. Luisa Goins EGFR-AF MARTINIQUAIS >60 Normal >=60 [facility] Comment on above: Performed By: #### L IPA, CMP, TEODORA #### [facility] [address] [place] [address] Dr. Luisa Goins EGFR-NON AF MARTINIQUAIS >60 Normal >=60 [facility] Comment on above: Performed By: #### L IPA CMP, TEODORA #### [facility] [address] [place] [address] Dr. Luisa Goins Globulin (S) [Mass/Vol] 4.2 g/dL Normal [facility] Comment on above: Performed By: #### L IPA, CMP, TEODORA #### [facility] [address] [place] [address] Dr. Luisa Goins Glucose [Mass/Vol] 101 mg/dL Normal 74-106 [facility] Comment on above: Performed By: #### L IPA, CMP, TEODORA #### [facility] [address] [place] [address] Dr. Luisa Goins Potassium [Moles/Vol] 3.8 mmol/L Normal 3.5-5.1 [facility] Comment on above: Performed By: #### L IPA, CMP, TEODORA #### [facility] [address] [address] [address] Luisa Goins Protein [Mass/Vol] 7.9 g/dL Normal 6.4-8.2 [facility] Comment on above: Performed By: #### L IPA, CMP, TEODORA #### [facility] [address] [address] [address] Luisa Goins Sodium [Moles/Vol] 140 mmol/L Normal 136-145 [facility] Comment on above: Performed By: #### L IPA, CMP, TEODORA #### [facility] [address] [address] [address] Luisa Goins Urea nitrogen [Mass/Vol] 10.0 mg/dL Normal 7.0-18.0 [facility] Comment on above: Performed By: #### L IPA, CMP, TEODORA #### [facility] [address] [address] [address] Luisa Goins Urea nitrogen/Creatinine [Mass ratio] 11.0 mg/mg Normal [facility] Comment on above: Performed By: #### L IPA, CMP, TEODORA #### [facility] [address] [address] [address] Luisa Goins CBCOrdered By: Wilver Nunez on 01-16-2021 Hematocrit (Bld) [Volume fraction] 50.0 % High 36.3 - 47.1 % [employer] Phone: Hemoglobin.gastrointe stinal spec 1 Ql (Stl) 15.7 g/dL High 11.9 - 15.1 g/dL [employer] Phone: Interpretation and review of laboratory results Abnormal [employer] Phone: MCH (RBC) [Entitic mass] 26.7 pg 25.2 - 33.5 pg [employer] Phone: MCHC (RBC) [Mass/Vol] 31.4 g/dL 28.4 - 34.8 g/dL [employer] Phone: MCV (RBC) [Entitic vol] 84.9 fL 82.6 - 102.9 fL [employer] Phone: NRBC Automated 0.0 0.0 per 100 WBC [employer] Phone: Platelet distribution width (Bld) [Ratio] 12.5 % 11.8 - 14.4 % [employer] Phone: Platelet mean volume (Bld) [Entitic vol] NOT REPORTED 8.1 - 13.5 fL [employer] Phone: Platelets (Bld) [#/Vol] See Reflexed IPF Result [employer] Phone: RBC (Bld) [#/Vol] 5.89 10*6/uL High 3.95 - 5.1 1 m/uL [employer] Phone: WBC (Bld) [#/Vol] 5.1 10*3/uL [employer] Phone: Comprehensive Metabolic Pane lOrdered By: Wilver Nunez on 01-16-2021 Albumin [Mass/Vol] 3.8 g/dL 3.5 - 5.2 g/dL [facility] Phone: Albumin/Globulin [Mass ratio] 1.1 {ratio} [employer] Phone: ALP (Bld) [Catalytic activity/Vol] 98 U/L 35 - 104 U/L [employer] Phone: ALT [Catalytic activity/Vol] 25 U/L 5 - 33 U/L [employer] Phone: Anion gap [Moles/Vol] 9 mmol/L 9 - 17 mmol/L [employer] Phone: AST [Catalytic activity/Vol] 19 U/L <32 [facility] Phone: Bilirubin [Mass/Vol] 0.29 mg/dL Low 0.3 - 1.2 mg/dL [employer] Phone: Calcium [Mass/Vol] 9.7 mg/dL 8.6 - 10. 4 mg/dL [employer] Phone: Chloride [Moles/Vol] 105 mmol/L 98 - 107 mmol/L [facility] Phone: CO2 [Moles/Vol] 26 mmol/L 20 - 31 mmol/L [facility] Phone: Creatinine [Mass/Vol] 0.6 mg/dL 0.50 - 0.90 mg/dL [employer] Phone: Free PSA/Total PSA [Mass fraction] 7.2 g/dL 6.4 - 8.3 g/dL [facility] Phone: GFR >60 >60 mL/min [employer] Phone: GFR Non- >60 >60 mL/min [facility] Phone: Glucose [Mass/Vol] 115 mg/dL High 70 - 99 mg/dL [facility] [employer] Phone: Interpretation and review of laboratory results Abnormal [facility] Phone: Potassium [Moles/Vol] 4.0 mmol/L 3.7 - 5.3 mmol/L [facility] [employer] Phone: Sodium [Moles/Vol] 140 mmol/L 135 - 144 mmol/L [facility] Phone: Urea nitrogen (BldV) [Mass/Vol] 11 mg/dL 6 - 20 mg/dL [facility] Phone: Urea nitrogen/Creatinine (Bld) [Mass ratio] 18 [facility] Phone: HCG Qualitative, SerumOrdere d By: Wilver Nunez on 01-16-2021 hCG Qual Negative NEGATIVE [employer] Phone: Comment on above: Specimens with hCG l evels near the threshold of the test (25 mIU/mL) may give a negative or indeterminate result. In such cases, another test should be performed with a new specimen in 48-72 hours. If early is suspected clinically in this setting, correlation with quantitative serum b-hCG level is suggested. [employer] has confirmed the use of plasma for this test. This has not been cleared or approved by the U.S. Food and Drug Administration. The FDA has determined that such clearance is not necessary. HIV ScreenOrdered By: Wilver Nunez on 01-16-2021 HIV Ag/Ab Non-Reactive NONREACTIVE [facility] Work Phone: Comment on above: No laboratory eviden ce of HIV infection. If acute HIV infection is suspected, consider testing for HIV-1 RNA. Hepatitis Panel, AcuteOrdere d By: Wilver Nunez on 01-16-2021 HAV IgM IA Qn (S) Non-Reactive NONREACTIVE [employer] Work Phone: Hep B Core Ab, IgM Non-Reactive NONREACTIVE [facility] [employer] Work Phone: Hepatitis B Surface Ag Non-Reactive NONREACTIVE [employer] Work Phone: Hepatitis C Ab Reactive Abnormal NONREACTIVE [employer] [facility] Work Phone: Comment on above: The hepatitis [...] Interpretation and review of laboratory results Abnormal [employer] Phone: Immature Platelet FractionOr dered By: Wilver Nunez on 01-16-2021 Platelet, Fluorescence 210 [employer] Phone: Platelet, Immature Fraction 3.2 % 1.1 - 10.3 % [employer] Phone: Laboratory - Chemistry and C hemistry - challengeOrdered By: Wilver Nunez on 01-16-2021 GFR/1.73 sq M.predicted MDRD (S/P/Bld) [Vol rate/Area] [facility] Work Phone: Comment on above: Average GFR for 30-3 9 years old: 107 mL/min/1.73sq m Chronic Kidney Disease: <60 mL/min/1.73sq m Kidney failure: <15 mL/min/1.73sq m eGFR calculated using average adult body mass. Additional eGFR calculator available at: http://www.ENDOGENX/multiple_crcl_2012.htm Stage 1: Some kidney damage normal GFR Stage 2: Mild kidney damage GFR 60-89 Stage 3: Moderate kidney damage GFR 30-59 Stage 4: Severe kidney damage GFR 15-29 Stage 5: Severe kidney damage GFR <15 ESRD - chronic treatment by dialysis or transplant Basic Metabolic Panelon 10-23 Anion gap [Moles/Vol] 9 mmol/L 9 - 17 mmol/L [place] Bun/Cre Ratio 31 High [place] Calcium [Mass/Vol] 9.3 mg/dL 8.6 - 10. 4 mg/dL [place] Chloride [Moles/Vol] 99 mmol/L 98 - 107 mmol/L [place] CO2 [Moles/Vol] 26 mmol/L 20 - 31 mmol/L [place] Creatinine [Mass/Vol] 0.65 mg/dL 0.5 - 0.9 mg/d L [place] GFR >60 >60 mL/min [place], [place] GFR Non- >60 >60 mL/min [place] Glucose [Mass/Vol] 101 mg/dL High 70 - 99 mg/dL [place], [place] Interpretation and review of laboratory results Abnormal [place] Potassium [Moles/Vol] 4.4 mmol/L 3.7 - 5.3 mmol/L [place] Sodium [Moles/Vol] 134 mmol/L Low 135 - 144 mmol/L [place] Urea nitrogen [Mass/Vol] 20 mg/dL 6 - 20 mg/dL [place] Metabolic Panelon 11-14-2019 GFR/1.73 sq M predicted among non-blacks MDRD (S/P/Bld) [Vol rate/Area] [place] Comment on above: Stage 1: Some [...] body mass. Additional eGFR calculator available at: http://www.ENDOGENX/multiple_crcl_2011.htm Basic Metabolic Panelon Anion gap [Moles/Vol] 11 mmol/L 9 - 17 mmol/L [employer] Phone: Bun/Cre Ratio 25 High [employer] Work Phone: Calcium [Mass/Vol] 8.8 mg/dL 8.6 - 10. 4 mg/dL [employer] Phone: Chloride [Moles/Vol] 105 mmol/L 98 - 107 mmol/L [employer] Phone: CO2 [Moles/Vol] 26 mmol/L 20 - 31 mmol/L [employer] Phone: Creatinine [Mass/Vol] 0.75 mg/dL 0.5 - 0.9 mg/d L [facility] Phone: GFR >60 >60 mL/min [employer] Phone: GFR Non- >60 >60 mL/min [employer] Phone: Glucose [Mass/Vol] 110 mg/dL High 70 - 99 mg/dL [employer] Work Phone: Interpretation and review of laboratory results Abnormal [employer] Phone: Potassium [Moles/Vol] 3.6 mmol/L Low 3.7 - 5.3 mmol/L [employer] Phone: Sodium [Moles/Vol] 142 mmol/L 135 - 144 mmol/L [employer] Phone: Urea nitrogen [Mass/Vol] 19 mg/dL 6 - 20 mg/dL [employer] Phone: CBCon 10-28-2019 Erythrocyte distribution width (RBC) [Ratio] 12.7 % 11.8 - 14.4 % [employer] Phone: Hematocrit (Bld) [Volume fraction] 42.4 % 36.3 - 47.1 % [employer] Phone: Hemoglobin (Bld) [Mass/Vol] 13.4 g/dL 11.9 - 15.1 g/dL [employer] Phone: MCH (RBC) [Entitic mass] 27.3 pg 25.2 - 33.5 pg [employer] Phone: MCHC (RBC) [Mass/Vol] 31.6 g/dL 28.4 - 34.8 g/dL [employer] Phone: MCV (RBC) [Entitic vol] 86.4 fL 82.6 - 102.9 fL [employer] Phone: Platelet mean volume (Bld) [Entitic vol] 9.3 fL 8.1 - 13.5 fL [employer] Phone: Platelets (Bld) [#/Vol] 262 10*3/uL [employer] Phone: RBC (Bld) [#/Vol] 4.91 10*6/uL 3.95 - 5.1 1 m/uL [employer] Phone: WBC (Bld) [#/Vol] 0.0 10*3/uL 0.0 per 100 WBC M [employer] Phone: WBC (Bld) [#/Vol] 8.4 10*3/uL [employer] Phone: Erythrocyte distribution width (RBC) [Ratio] 12.7 % 11.8 - 14.4 % [employer] Phone: Hematocrit (Bld) [Volume fraction] 49.1 % High 36.3 - 47.1 % [employer] Phone: Hemoglobin (Bld) [Mass/Vol] 15.6 g/dL High 11.9 - 15.1 g/dL [employer] Phone: Interpretation and review of laboratory results Abnormal [facility] Phone: MCH (RBC) [Entitic mass] 27.5 pg 25.2 - 33.5 pg [employer] Phone: MCHC (RBC) [Mass/Vol] 31.8 g/dL 28.4 - 34.8 g/dL [employer] Phone: MCV (RBC) [Entitic vol] 86.6 fL 82.6 - 102.9 fL [facility] Phone: Platelet mean volume (Bld) [Entitic vol] 9.5 fL 8.1 - 13.5 fL [employer] Phone: Platelets (Bld) [#/Vol] 306 10*3/uL [employer] Phone: RBC (Bld) [#/Vol] 5.67 10*6/uL High 3.95 - 5.1 1 m/uL [employer] Phone: WBC (Bld) [#/Vol] 8.1 10*3/uL [employer] Phone: WBC (Bld) [#/Vol] 0.0 10*3/uL 0.0 per 100 WBC M [employer] Phone: Comprehensive Metabolic Pane ruma 10-28-2019 Albumin [Mass/Vol] 4.6 g/dL 3.5 - 5.2 g/dL [facility] [employer] Work Phone: Albumin/Globulin [Mass ratio] 1.2 {ratio} [facility] [employer] Phone: ALP [Catalytic activity/Vol] 84 U/L 35 - 104 U/L [facility] [employer] Work Phone: ALT [Catalytic activity/Vol] 22 U/L 5 - 33 U/L [facility] [employer] Phone: Anion gap [Moles/Vol] 14 mmol/L 9 - 17 mmol/L [facility] [employer] Work Phone: AST [Catalytic activity/Vol] 16 U/L <32 [facility] [employer] Phone: Bilirubin Ql (U) 0.76 mg/dL 0.3 - 1.2 mg/dL [facility] [employer] Work Phone: Bun/Cre Ratio 32 High [facility] [employer] Work Phone: Calcium [Mass/Vol] 9.8 mg/dL 8.6 - 10. 4 mg/dL [facility] [employer] Phone: Chloride [Moles/Vol] 103 mmol/L 98 - 107 mmol/L [facility] [employer] Phone: CO2 [Moles/Vol] 25 mmol/L 20 - 31 mmol/L [facility] [employer] Phone: Creatinine [Mass/Vol] 0.71 mg/dL 0.5 - 0.9 mg/d L [facility] [employer] Phone: GFR >60 >60 mL/min [facility] [employer] Work Phone: GFR Non- >60 >60 mL/min [facility] [employer] Phone: Glucose [Mass/Vol] 90 mg/dL 70 - 99 mg/dL [facility] [employer] Work Phone: Interpretation and review of laboratory results Abnormal [facility] Work Phone: Potassium [Moles/Vol] 3.3 mmol/L Low 3.7 - 5.3 mmol/L [facility] Phone: Protein [Mass/Vol] 8.4 g/dL High 6.4 - 8.3 g/dL [facility] [employer] Phone: Sodium [Moles/Vol] 142 mmol/L 135 - 144 mmol/L [facility] [employer] Phone: Urea nitrogen [Mass/Vol] 23 mg/dL High 6 - 20 mg/dL [facility] [employer] Work Phone: HCG Qualitative, Serumon hCG Qual Negative NEGATIVE [facility] Phone: Comment on above: Specimens with hCG l evels near the threshold of the test (25 mIU/mL) may give a negative or indeterminate result. In such cases, another test should be performed with a new specimen in 48-72 hours. If early is suspected clinically in this setting, correlation with quantitative serum b-hCG level is suggested. [employer] has confirmed the use of plasma for this test. This has not been cleared or approved by the U.S. Food and Drug Administration. The FDA has determined that such clearance is not necessary. HIV Screenon 10-28-2019 HIV Ag/Ab NONREACTIVE NONREACTIVE [facility] Phone: Comment on above: No laboratory eviden ce of HIV infection. If acute HIV infection is suspected, consider testing for HIV-1 RNA. Hepatitis Panel, Acuteon HAV IgM IA Qn (S) NONREACTIVE NONREACTIVE [facility] Phone: Hep B Core Ab, IgM NONREACTIVE NONREACTIVE [employer] Phone: Hepatitis B Surface Ag NONREACTIVE NONREACTIVE [employer] Work Phone: Hepatitis C Ab REACTIVE Abnormal NONREACTIVE [employer] [facility] Work Phone: Comment on above: The hepatitis [...] Interpretation and review of laboratory results Abnormal [employer] Work Phone: Metabolic Panelon 10-28-2019 GFR/1.73 sq M predicted among non-blacks MDRD (S/P/Bld) [Vol rate/Area] [employer] Phone: Comment on above: Stage 1: Some [...] body mass. Additional eGFR calculator available at: http://www.ENDOGENX/Alverix_crcl_2012.htm GFR/1.73 sq M predicted among non-blacks MDRD (S/P/Bld) [Vol rate/Area] [employer] Phone: Comment on above: Stage 1: Some [...] body mass. Additional eGFR calculator available at: http://www.ENDOGENX/Alverix_crcl_2012.htm Microscopic Urinalysison Amorphous, UA 2+ Abnormal None [employer] Work Phone: Bacteria, UA TRACE Abnormal None [employer] Work Phone: Casts UA NOT REPORTED /LPF [employer] Work Phone: Crystals UA NOT REPORTED None /HPF [facility] [employer] Work Phone: Epithelial Cells UA 0 TO 2 [facility] Work Phone: Interpretation and review of laboratory results Abnormal [employer] Work Phone: Mucus, UA NOT REPORTED None [employer] Phone: Other Observations UA NOT REPORTED NOT REQ. [facility] Work Phone: RBC (U) [#/Vol] 0 TO 2 [employer] [facility] Work Phone: Renal Epithelial, Urine NOT REPORTED 0 /HPF [facility] Work Phone: Trichomonas, UA NOT REPORTED None [employer] Work Phone: WBC, UA 0 TO 2 [employer] Work Phone: Yeast, UA NOT REPORTED None [employer] Phone: - [employer] Phone: , Urineon 0 Beta HCG ( test) Ql (U) Negative NEGATIVE [employer] Phone: Comment on above: Specimens with hCG l evels near the threshold of the test (25 mIU/mL) may give a negative or indeterminate result. In such cases, another test should be performed with a new specimen in 48-72 hours. If early is suspected clinically in this setting, correlation with quantitative serum b-hCG level is suggested. [employer] has confirmed the use of plasma for this test. This has not been cleared or approved by the U.S. Food and Drug Administration. The FDA has determined that such clearance is not necessary. Troponinon 10-28-2019 Troponin I.cardiac [Mass/Vol] NOT REPORTED [employer] Phone: Troponin T.cardiac [Mass/Vol] NOT REPORTED <0.03 ng/mL [employer] Phone: Troponin, High Sensitivity <6 0 - 14 ng/L [facility] [employer] Phone: Comment on above: High Sensitivity Troponin values cannot be compared with other Troponin methodologies. Patients with high levels of Biotin oral intake (i.e >5mg/day) may have falsely decreased Troponin levels. Samples collected within 8 hours of biotin intake may require additional information for diagnosis. Urinalysis Reflex to Culture on 10-28-2019 Bilirubin Urine Negative NEGATIVE [facility] Work Phone: Color, UA YELLOW YELLOW [facility] [employer] Work Phone: Glucose, Ur Negative NEGATIVE [facility] [employer] Phone: Interpretation and review of laboratory results Abnormal [facility] [employer] Phone: Ketones Ql (U) Negative NEGATIVE [facility] Work Phone: Leukocyte esterase Test strip Ql (U) Negative NEGATIVE [facility] [employer] Phone: Nitrite, Urine Negative NEGATIVE [facility] Work Phone: pH, UA 8.0 [facility] [employer] Work Phone: Protein (U) [Mass/Vol] Negative NEGATIVE [facility] [employer] Phone: Specific [place], UA 1.010 [facility] [employer] Work Phone: Turbidity UA CLOUDY Abnormal CLEAR [facility] [employer] Phone: Urinalysis Comments NOT REPORTED [facility] [employer] Work Phone: Urine Hgb Negative NEGATIVE [facility] [employer] Phone: Urobilinogen, Urine Normal Normal [facility] [employer] Phone: Vital Signs Date Time Vital Sign Value Performing Clinician Joys bond 10-28-2019 19:57-0500 BP Diastolic 107 mm[Hg] Wilver Nunez [facility] [employer] Work Phone: 10-28-2019 19:57-0500 BP Systolic 176 mm[Hg] Wilver Anna [employer] Work Phone: 10-28-2019 18:51-0500 Pulse Oximetry 100 % [facility]une[facility] [employer] Work Phone: 10-28-2019 18:01-0500 Body Temperature 98.2 [degF] [facility] [employer] Work Phone: 10-28-2019 18:01-0500 Pulse (Heart Rate) 76 /min [facility]unez [facility] [employer] Work Phone: 10-28-2019 18:01-0500 Respiratory Rate 16 /min [facility]unez [facility] [employer] Work Phone: Encounters Encounter Date Encounter Type Care Provider Facility Start: 10-18-2024 End: 10-18-2024 Patient encounter procedure Fausto R NILL [facility] Start: 10-12-2024 End: 10-12-2024 ambulatory Fausto R NILL Facility:[facility] Start: 10-12-2024 End: 10-12-2024 Patient encounter procedure Fausto R NILL [facility] Start: 09-27-2024 End: 09-27-2024 ambulatory Fausto R NILL [place] [place]: 09-27-2024 End: 09-27-2024 Lab Drop off Fausto R NILL [facility] Start: 09-27-2024 End: 09-27-2024 ambulatory Fausto R NILL Facility:[facility] Start: 09-27-2024 End: 09-27-2024 Patient encounter procedure Fausto R NILL [facility] Start: 08-31-2024 End: 08-31-2024 ambulatory Fausto R NILL Facility:[facility] Start: 08-09-2024 ambulatory Fausto [place] Facility:[facility] Start: 11-23-2022 Encounter for genera l adult medical examination without abnormal findings DR ANOOP CHINO . [facility] Start: 11-18-2022 End: 11-19-[address] ANOOP CHINO . Facility:[facility] Start: 11-18-2022 End: 11-19-2022 Encounter for general adult medical examination without abnormal findings DR ANOOP CHINO . Facility:[facility] Start: 08-25-2022 End: 08-26-[address] [facility] Start: 06-06-2022 End: 06-06-2022 Emergency department patient visit [facility] Start: 04-14-2022 End: 04-15-[address] [facility] Start: 04-14-2022 End: 04-14-2022 Subsequent hospital visit by physician Wilver Barnes CNP Work Phone: [facility] Start: 03-06-2022 End: 03-07-[address] ANOOP CHINO . Facility:[facility] Start: 01-16-2021 End: 01-16-2021 Subsequent hospital visit by physician Wilver Barnes CNP Work Phone: [facility] Start: 11-14-2019 End: 11-14-2019 Subsequent hospital visit by physician Wilver [facility] Start: 11-01-2019 End: 11-01-2019 Subsequent hospital visit by physician Wilver [facility] Start: 10-28-2019 End: 10-28-2019 Emergency department patient visit [facility] ED Comment on above: Hypertension, unspec ified type (Primary Dx) Start: 10-28-2019 End: 10-28-2019 Subsequent hospital visit by physician Wilver [facility] Procedures Date Procedure Procedure Detail Performing Clinician Start: 09-27-2024 Excision of lipoma Eusebio BLAIR Start: 09-27-2024 Pigmented nevus Fausto BLAIR Start: 01-16-2021 Antibody hiv-1&hiv-2 single result Wilver Nunez [employer]ING [employer]ACHINE [employer]PERATOR - [employer] Work Phone: Start: 01-16-2021 Comprehensive metabo lic panel Wilver Nunez [employer]ING MACHINE OPER[employer] - [employer] Work Phone: Start: 01-16-2021 IMMATURE PLATELET FRACTION Wilver Nunez [employer]ING MACHINE OPERATOR - [employer] Work Phone: Start: 11-14-2019 Basic metabolic pane l calcium total Wilver Nunez Work Phone: Start: 10-28-2019 Urinalysis microscopic only Beryl Irene Work Phone: Start: 10-28-2019 Urine test visual color cmprsn meths Beryl Irene Work Phone: Start: 10-28-2019 Urnls dip stick/tabl et rgnt auto w/o microscopy Beryl Irene Work Phone: Start: 10-28-2019 Assay of troponin quantitative Beryl [employer] Work Phone: Start: 10-28-2019 Basic metabolic pane [...] 05-22-2022 Influenza vaccination Flu vaccine (# 1) [employer] Start: 05-22-2021 Influenza vaccination Flu vacc ine (Season Ended) [employer] Phone: Start: 05-22-2019 Influenza vaccination Flu vaccine (# 1) [employer] Phone: Start: 2008 DTaP/Tdap/Td vaccine (1 - Tdap) DTaP/Tdap/Td vaccine (1 - Tdap) [employer] Start: 2005 COVID-19 Vaccine (1) COVID-19 Vaccin e (1) [employer] Phone: Start: 1989 COVID-19 Vaccine (#1) COVID-19 Vacci ne (#1) [employer] EKG 12 Lead EKG 12 Lead ECG STAT 10/28/2019 6:22 PM EST [employer] Phone: End: 11-01-2019 Hepatitis C RNA, quantitative, PCR Hepatitis C RNA, quantitative, PCR Lab Routine Once for 1 Occurrences starting 11/01/2019 until 11/01/2019 [employer] Phone: Comment on above: Once for 1 Occurrenc es starting 11/01/2019 until 11/01/2019 Hepatitis C RNA, quantitative, PCR [employer] Phone: End: 11-14-2019 Hepatitis C RNA, quantitative, PCR Hepatitis C RNA, quantitative, PCR Lab Routine Once for 1 Occurrences starting 11/14/2019 until 11/14/2019 [facility] Comment on above: Once for 1 Occurrenc es starting 11/14/2019 until 11/14/2019 Payers Date Payer Category Payer Medicaid [facility] [place] [facility] [place] [employer] xxxxxxxxxxxx 2016-Present [phone] [address] [address] [place] [address] xxxxxxxxxxxx [id number] 1989 Unknown [id number] 1989 Unknown [id number] 1989 Unknown [id number] 1989 Unknown [id number] 1989 Unknown [id number] 1989 Unknown [id number] 1989 Unknown [id number] 1989 Unknown [id number] 1989 Unknown [id number] 1989 Unknown [id number] 1959 Medicaid [id number] Social History Date Type Detail Facility Tobacco smoking stat [facility] Unknown if ever smoked [employer] Phone: Start: 1990 Sex Assigned At Not on file [employer] Phone: Tobacco smoking stat [facility] Tobacco smoking consumption unknown JOSEPHINE NIELSON [employer] Phone: Start: 09-27-2024 End: 10-18-2024 Tobacco smoking status Heavy tobacco smoker (finding) [facility] [place] Sex Assigned At Female [facility] Functional Status Date Assessment Result Facility 10-18-2024 Functional Status N/A [facility] [place] 09-27-2024 Functional Status N/A [facility] [place] Clinical Note 08-31-2024 Note Date & Type [...] Mother. Primary malignant neoplasm of lung: Mother. [facility] Comment on above: Result Comment: Elec tronically Signed By: Fausto BLAIR MD\.br\Date and Time Signed: 08/31/24 15:10 EST Evaluation + Plan note Note Date & Type Note Facility Evaluation + Plan note Future Appointments Appointment Date:10/05/2024 02:00:00 PM Scheduled Provider:Fausto BLAIR MD Location:[facility] Appointment Type:[address] General Surgery [place] Hospital course Narrative Note Date & Type Note Facility Hospital course Narrative No data available for this section [facility] [place] Hospital Discharge instructions Note Date & Type Note Facility Hospital Discharge instructions No data available for this section [facility] [place] Progress note Note Date & Type Note Facility Progress note No data available for this section [facility] [place] Discharge Instructions * Instructions* Beryl Bonilla PA-C - 10/28/2019 Follow-up with primary care. See the provider at the facility where you are tomorrow. We are changing your blood pressure medication. We would like you to stop taking the clonidine and start taking Norvasc. * Attachments The following attachments cannot be sent through Care Everywhere. * Hypertension: General Info (Lebanese) documented in this encounter Assessments Diagnosis Hypertension, unspecified type- Primary Advance Directives Documents on File Type Date Recorded Patient Retail Client Solutions Analyst Expl anation Advance Directives and Living Will Power of Waste Water Operator Documents on File Type Date Recorded Patient Retail Client Solutions Analyst Expl anation ACP-Advance Directive ACP-Power of Waste Water Operator Summary Purpose Family History No Family History [...] Personnel Name: Anoop Chino MD Address: Address: [address] [place] [address]- Materials Specialist Relationship Specialty Start Date End Date Wilver Nunez APRN - CNP PCP - General 07/29/17 INFORMATION SOURCE (unrecogn ized section and content) DATE CREATED AUTHOR 08/27/2022 [facility] DATE CREATED AUTHOR AUTHOR'S ORGANIZ ATION 11/25/2022 [facility] DATE CREATED AUTHOR AUTHOR'S ORGANIZ ATION 10/06/2024 [facility] DATE CREATED AUTHOR AUTHOR'S ORGANIZ ATION 10/14/2024 [facility] FOR RECORDS PERTAINING TO PATIENTS WHO [...] BE BASED ON THE PRIMARY CLINICAL RECORDS. [employer] [facility]. provides no warranty or guarantee of the accuracy or completeness of information in this document.
[2025-06-16] MEDS: MORPHINE SULFATE 2 MG/ML SYRINGE IV (07:03)
[2025-06-16 07:10] LABS: Cast Seen? NONE SEEN #/LPF (NONE SEEN); Crystals Seen? Seen #/HPF (None Seen); Urine Culture Indicated NO
[2025-06-16 07:12] LABS: Lactate/Lactic Acid 0.7 mmol/L (0.4-2.0)
[2025-06-16 07:16] LABS: Alanine Aminotransferase 62 U/L (14-59); Albumin Globulin Ratio 1.0; Albumin Level 3.8 g/dL (3.4-5.0); Alkaline Phosphatase 61 U/L (46-116); Anion Gap 11.4; Aspartate Amino Transferase 32 U/L (15-37); Blood Urea Nitrogen 7.0 mg/dL (7.0-18.0); Calcium 8.4 mg/dL (8.5-10.1); Carbon Dioxide 25.8 mmol/L (21.0-32.0); Chloride 104 mmol/L (98-107); Estimated GFR (African America >60 (>=60 mL/min/1.73m^2); Estimated GFR (Non-African Ame >60 (>=60 mL/min/1.73m^2); Globulin 3.8 g/dL; Glucose 107 mg/dL (74-106); Lipase 276.0 U/L (16.0-77.0); Potassium 3.2 mmol/L (3.5-5.1); Sodium 138 mmol/L (136-145); Total Protein 7.6 g/dL (6.4-8.2)
--- NOTE | 2025-06-16 07:17 | ED.GENADUL1 ---
HPI HPI - General Adult General Chief complaint: Abdominal Pain Stated complaint: ABDOMINAL PAIN Time Seen by Provider: 06/16/25 06:45 Mode of arrival: walk-in History of Present Illness HPI narrative: 35-year-old female presents to the emergency department for abdominal pain. Started about 6:00 last night and got worse when she went to work at 10:00 last night. It has been continuous since then and she points to her right lower quadrant. She has had a cholecystectomy and a hysterectomy. She still has her appendix. No trauma or fever or vomiting. Related Data Home Medications ?Medication ?Instructions ?Recorded ?Confirmed clonidine HCl 0.2 mg tablet 0.2 mg PO Q8H 05/06/23 06/16/25 trazodone 300 mg tablet 300 mg PO DAILY 05/06/23 06/16/25 Previous Rx's ?Medication ?Instructions ?Recorded clindamycin HCl 300 mg capsule 300 mg PO Q6H 10 days #40 caps 04/29/24 Allergies Allergy/AdvReac Type Severity Reaction Status Date / Time Penicillins Allergy Unknown Unknown Verified 06/16/25 06:34 Opioid HPI Opioid Management Most Recent Opioid Data: Last Pain Scale 5 Today, 08:22 Last ED Pain Assessment Today, 07:56 Last MAR Pain Assessment Today, 07:03 Review of Systems ROS Narrative A ten point review of systems is negative except as noted above. [facility] Surgical History (Updated 05/06/23 @ 12:34 by Aurora Bishop RN) History of hysterectomy ?Z90.710 - Acquired absence of both cervix and uterus (ICD-10) Social History Smoking status: Current every day smoker Little interest or pleasure in doing things: not at all Feeling down, depressed, or hopeless: not at all Exam Narrative Exam Narrative: Nurses note and vital signs reviewed and patient is not hypoxic. General:The patient appears in no acute distress Skin:Warm, dry, no pallor noted.There is no rash noted. Head:Normocephalic, atraumatic Eye: Normal conjunctiva, no drainage Ears, Nose, Mouth, and Throat: oral mucosa is moist. Nares patent. Cardiovascular:Regular Rate and Rhythm Respiratory:Patient is in no distress, no accessory muscle use, lungs are clear to auscultation, no wheezing, rales or rhonchi Back:non-tender GI: Soft and nondistended. Tenderness present in the right lower quadrant without mass or rebound or guarding Musculoskeletal: The patient has no evidence of calf tenderness, no pitting edema, symmetrical pulses noted bilaterally Neurological:A&O, normal speech Psychiatric:Cooperative Constitutional Vital Signs, click to edit/add: Last Vital Signs Temp 98.2 F 06/16/25 06:25 Pulse 84 06/16/25 08:18 Resp 16 06/16/25 08:18 BP 184/120 H 06/16/25 08:22 Pulse Ox 99 06/16/25 08:18 O2 Del Method Room Air 06/16/25 08:18 Course Vital Signs Vital signs: Vital Signs Temperature 98.2 F 06/16/25 06:25 Pulse Rate 84 06/16/25 06:25 Respiratory Rate 16 06/16/25 06:25 Blood Pressure 171/115 H 06/16/25 06:25 Pulse Oximetry 98 06/16/25 06:25 Oxygen Delivery Method Room Air 06/16/25 06:25 Temperature 98.2 F 06/16/25 06:25 Pulse Rate 84 06/16/25 08:18 Respiratory Rate 16 06/16/25 08:18 Blood Pressure 184/120 H 06/16/25 08:22 Pulse Oximetry 99 06/16/25 08:18 Oxygen Delivery Method Room Air 06/16/25 08:18 Medical Decision Making MDM Narrative Medical decision making narrative: Acute appendicitis is identified. She was given IV morphine and IV Invanz and I have spoken to Dr. Aldridge, general surgeon at [facility]. He accepts the patient and the patient is agreeable and stable for transfer. She was given IV hydralazine because of elevated blood pressure. She was unable to take her morning blood pressure medication because of pain and nausea. Treatment diagnosis and disposition were discussed with the patient. Case discussed with hospitalist as well and the patient will be transferred there. Differential Diagnosis Differential Diagnosis: Appendicitis, ovarian cyst, constipation, UTI, kidney stone Lab Data Lab results reviewed: Yes I reviewed the patient's lab results Labs: Lab Results 06/16/25 06/16/25 Range/Units 06:26 06:38 WBC 8.2 (4.0-11.0) 10^3/uL RBC 4.94 (4.20-5.40) 10^6/uL Hgb 15.1 (12.0-16.0) g/dL Hct 44.4 (36.0-48.0) % MCV 89.9 (81.0-99.0) fL MCH 30.6 (26.7-34.0) pg MCHC 34.0 (29.9-35.2) g/dL RDW 12.7 (11.0-15.0) % Plt Count 234 (150-450) 10^3/uL MPV 9.6 (9.5-13.5) fL Neut % (Auto) 60.3 (43.0-75.0) % Lymph % (Auto) 23.3 (20.5-60.0) % [place] % (Auto) 9.1 (1.7-12.0) % Eos % (Auto) 5.6 (0.9-7.0) % Baso % (Auto) 1.0 (0.2-2.0) % Neut # (Auto) 4.9 (1.4-6.5) 10^3/uL Lymph # (Auto) 1.9 (1.2-3.8) 10^3/uL [place] # (Auto) 0.7 (0.3-0.8) 10^3/uL Eos # (Auto) 0.5 (0.0-0.7) 10^3/uL Baso # (Auto) 0.1 (0.0-0.1) 10^3/uL Abs Immat Gran (auto) 0.06 H (0.00-0.03) 10^3/uL Imm/Tot Granulo (auto) 0.7 H (0.0-0.5) % Sodium 138 (136-145) mmol/L Potassium 3.2 L (3.5-5.1) mmol/L Chloride 104 (98-107) mmol/L Carbon Dioxide 25.8 (21.0-32.0) mmol/L Anion Gap 11.4 BUN 7.0 (7.0-18.0) mg/dL Creatinine 0.70 (0.55-1.02) mg/dL Est GFR ( Amer) >60 (>=60 mL/min/1.73m^2) Est GFR (Non-Af Amer) >60 (>=60 mL/min/1.73m^2) BUN/Creatinine Ratio 10.0 Glucose 107 H (74-106) mg/dL Lactate 0.7 (0.4-2.0) mmol/L Calcium 8.4 L (8.5-10.1) mg/dL Total Bilirubin 0.5 (0.2-1.0) mg/dL AST 32 (15-37) U/L ALT 62 H (14-59) U/L Alkaline Phosphatase 61 (46-116) U/L Total Protein 7.6 (6.4-8.2) g/dL Albumin 3.8 (3.4-5.0) g/dL Globulin 3.8 g/dL Albumin/Globulin Ratio 1.0 Lipase 276.0 H (16.0-77.0) U/L Urine Color Yellow (YELLOW) Urine Clarity Clear (CLEAR) Urine pH 5.0 (5.0-9.0) Ur Specific [place] >=1.030 A (1.005-1.025) Urine Protein Trace (NEG/TRACE) mg/dL Urine Glucose (UA) Negative (NEGATIVE) mg/dL Urine Ketones Trace A (NEGATIVE) mg/dL Urine Occult Blood Negative (NEGATIVE) Urine Nitrite Negative (NEGATIVE) Urine Bilirubin Small A (NEGATIVE) Urine Urobilinogen 1.0 (0.2-1.0) EU/dL Ur Leukocyte Esterase Negative (NEGATIVE) Urine RBC 0-2 (0-2) #/HPF Urine WBC None seen (NONE SEEN) #/HPF Ur Squamous Epith Cells Few A (NONE/RARE) #/LPF Urine Crystals Seen A (None Seen) #/HPF Calcium Oxalate Crystal Rare Urine Bacteria Trace A (NONE SEEN) #/HPF Urine Casts None seen (NONE SEEN) #/LPF Urine Mucus Large A (NONE SEEN) Ur Culture Indicated? No Imaging Data CT scan - abdomen: Radiologist's impression: ITS Impressions Abdomen/Pelvis CT 06/16/25 06:46 IMPRESSION: The stump of the appendix is dilated measuring 1.6 cm in greatest dimension with periappendiceal fat stranding consistent with acute appendicitis. Impression dictated by: El Koo M.D. 06/16/2025 7:50 AM Dictation Location: [place] [address] Electronically authenticated by: [id number] Y Date: 06/16/2025 07:50 Critical Care Time Critical Care Time Critical Care Time: Yes Total Critical Care Time: 40 Attestation: Due to the high probability of sudden and clinically significant deterioration in the patient's condition he/she required the highest level of my preparedness to intervene urgently I provided critical care time including documentation time, medication orders and management, reevaluation, vital sign assessment, ordering and reviewing of lab tests, ordering and reviewing of x-ray studies, and admission orders. Aggregate critical care time is 40 minutes including only time during which I was engaged in work directly related to his/her care and did not include time spent treating other patients simultaneously. Discharge Plan Discharge Chief Complaint: Abdominal Pain Clinical Impression: Acute appendicitis, Hypertension Patient Disposition: [facility] Time of Disposition Decision: 08:16 Discharge Location: [facility] Condition: Good Mode of Transportation: EMS
[2025-06-16] MEDS: HYDRALAZINE HCL 20 MG/ML VIAL 10 MG IVP (07:49)
[2025-06-16] MEDS: ERTAPENEM SODIUM 1 GM in 0.9 % SODIUM CHLORIDE 50 ML IV (08:21)
[2025-06-16] MEDS: MORPHINE SULFATE 4 MG/ML VIAL IV (08:22)
[2025-06-16] MEDS: HYDRALAZINE HCL 20 MG/ML VIAL IVP (08:22)
[2025-06-16] MEDS: LABETALOL HCL 100 MG/20 ML MDV 10 MG IVP (09:48)
== END 2025-06-16 10:45 | disposition short-term general hospital (02) ==
PROVIDERS: Internal Medicine; Emergency Provider Emergency Medicine; PCP Family Medicine
DX: K35.80 Unspecified acute appendicitis (principal); I10 Essential (primary) hypertension; Z90.49 Acquired absence of other specified parts of digestive tract; Z90.710 Acquired absence of both cervix and uterus; F17.200 Nicotine dependence, unspecified, uncomplicated
CPT/HCPCS: 36415; 74177; 80053; 81001; 83605; 83690; 85025; 96365; 96375; 96376; 99285; J0360; J1290; J1335; J2270; Q9967